=== PATIENT | female | born 1960 | race Caucasian/White ===

== ENCOUNTER → 2020-02-26 14:11 | Outpatient (CLI) | payer OTHER, SELFPAY ==
--- NOTE | ~2020-02-26 | XR_ITS ---
XR chest 2V DATE: 02/26/2020 14:25 INDICATION: Right chest pain for one month. Smoker. TECHNIQUE: PA and lateral views COMPARISON: None FINDINGS: Normal heart size. No hilar or mediastinal enlargement. No pulmonary infiltrate or consolid ation, pleural effusion or pulmonary vascular congestion or pneumothorax. Surgical clips, right upper quadrant, consistent with cholecystectomy. IMPRESSION: No active cardiopulmonary disease Reviewed, dictated and finalized at location A.
== END ==
PROVIDERS: PCP Emergency Medicine; Visit Provider Emergency Medicine
DX: J44.9 Chronic obstructive pulmonary disease, unspecified (principal)
CPT/HCPCS: 71046

== ENCOUNTER → 2020-04-30 10:35 | Outpatient (CLI) | payer OTHER, SELFPAY ==
--- NOTE | ~2020-04-30 | XR_ITS ---
XR lumbar spine 2-3V DATE: 04/30/2020 10:52 INDICATION: Left lower back pain, radiating to left lower extremity TECHNIQUE: AP, lateral, coned lateral lumbosacral views COMPARISON: None FINDINGS: There is mild levoscoliosis of the thoracolumbar spine. No fracture or bone destruction or spondylolisthesis. The included lower thoracic and lumbar pedicles are intact. There is mild degenerative spurring primarily at L3-4. The lumbar and lumbosacral inters paces are relatively preserved. The sacroiliac joints are intact. Surgical clips, right upper quadrant, consistent with cholecystectomy. There is an approximately 5 x 12 mm calcification overlying the right renal pelvis. IMPRESSION: Mild levoscoliosis Mild degenerative disc disease at L3-4 Reviewed, dictated and finalized at location A.
== END ==
PROVIDERS: PCP Emergency Medicine; Visit Provider Emergency Medicine
DX: M54.5 Low back pain (principal); M41.86 Other forms of scoliosis, lumbar region; M51.36 Other intervertebral disc degeneration, lumbar region
CPT/HCPCS: 72100

== ENCOUNTER 2020-05-13 01:49 | Outpatient (CLI) | payer OTHER, SELFPAY ==
[2020-05-13 19:16] LABS: SARS-CoV-2 RNA PCR Negative
== END 2020-05-13 01:50 | disposition home or self-care (01) ==
LOC: ANHCOVIDDT 01:50
PROVIDERS: PCP Emergency Medicine; Visit Provider Specialist
DX: Z01.812 Encounter for preprocedural laboratory examination (principal); Z11.59 Encounter for screening for other viral diseases
CPT/HCPCS: 87635; C9803; U0003

== ENCOUNTER 2020-05-15 10:37 | Outpatient (CLI) | payer OTHER, SELFPAY ==
[2020-05-15] VITALS (20 sets, daily range): BP systolic 90–137; BP diastolic 62–97; PULSE 4–78; RESP 14–20; TEMP 36.2–36.8; O2SAT 96–99; BMI 44.9
[2020-05-15 11:54] LABS: Basophils Absolute Auto 0.1 K/mm3 (0.0-0.1); Basophils Percent Auto 0.7 % (0.2-1.2); Eosinophils Absolute Auto 0.4 K/mm3 (0-0.3); Eosinophils Percent Auto 4.5 % (0-4.4); Hematocrit 44.1 % (37.0-47.0); Hemoglobin 14.6 g/dL (12.0-15.0); Immature Granulocyte Absolute 0.03 K/mm3 (0.00-0.031); Immature Granulocyte Percent A 0.3 % (0-0.5); Lymphocytes Absolute Auto 2.24 K/mm3 (0.9-3.2); Lymphocytes Percent Auto 25.9 % (18.3-44.2); Mean Corpuscular HGB Conc 33.1 g/dl (32-36); Mean Corpuscular Hemoglobin 30.1 pg (26-34); Mean Corpuscular Volume 90.9 fl (80-100); Mean Platelet Volume 10.1 fl (7.4-10.4); Monocytes Absolute Auto 0.7 K/mm3 (0.1-0.6); Neutrophils Absolute Auto 5.2 K/mm3 (1.3-6.7); Neutrophils Percent Auto 60.6 % (45.5-73.1); Platelet Count Result 256 k/mm3 (150-375); Red Blood Count 4.85 M/mm3 (4.2-5.4); Red Cell Distribution Width 12.7 % (11.5-14.5); White Blood Count 8.6 K/mm3 (4.5-10.0)
[2020-05-15 12:06] LABS: Blood Urea Nitrogen 11 mg/dL (7-17); Calcium 8.4 mg/dL (8.4-10.2); Carbon Dioxide 26 mmol/L (22-30); Chloride 108 mmol/L (98-107); Estimated CRCL calculation 80 ml/min; Estimated Glomerular Filt Rate > 60; Glucose 107 mg/dL (65-105); INR 1.1; Potassium 3.9 mmol/L (3.4-5.0); Prothrombin Time 13.6 Seconds (11.1-14.7); Sodium 140 mmol/L (137-145)
--- NOTE | 2020-05-15 13:56 | PM.IMHP ---
H&P: HPI History of Present Illness Chief complaint: Chest Pain Narrative: Skip Mari is a 60 year old female Chief complaint is chest pain 60-year-old lady with history of dyslipidemia, history of hypertension, was seen because of chest pain underwent stress test which was abnormal she will be admitted to the hospital for elective cardiac catheterization for definitive diagnosis of coronary disease Meds Home Medications and Allergies Home Medications Medication Instructions Recorded Confirmed Type albuterol sulfate 2 puff INHALATION QID 05/15/20 05/15/20 History albuterol sulfate 2.5 mg INHALATION Q4H 05/15/20 05/15/20 History budesonide-formoterol [Symbicort] 2 puff INHALATION Q12H 05/15/20 05/15/20 History fluticasone propionate 1 spray INTRANASAL BID 05/15/20 05/15/20 History furosemide [Lasix] 20 mg PO DAILY 05/15/20 05/15/20 History losartan 50 mg PO DAILY 05/15/20 05/15/20 History potassium chloride 10 meq PO DAILY 05/15/20 05/15/20 History simvastatin 40 mg PO DAILY 05/15/20 05/15/20 History Allergies Allergy/AdvReac Type Severity Reaction Status Date / Time No Known Allergies Allergy Unverified 01/21/17 15:23 Vital Signs Vital Signs - 24 hr 05/15/20 11:15 Temperature 36.3 C L Pulse Rate 72 Respiratory Rate 18 Blood Pressure 90/67 L Pulse Oximetry 98 Exam Narrative: Exam Narrative: Awake alert oriented x3 not in acute distress Neck is supple no obvious JVD, no carotid bruit Chest: Good air entry bilaterally, lungs are clear to auscultation and percussion bilaterally Cardiovascular: Regular rate and rhythm, 2/6 systolic murmur noted left sternal border Abdomen: Soft nontender bowel sounds positive Extremities: No edema has good pulses distally bilaterally H&P: Results Labs Labs: Short CBC 05/15/20 Range/Units 11:41 WBC 8.6 (4.5-10.0) K/mm3 Hgb 14.6 (12.0-15.0) g/dL Hct 44.1 (37.0-47.0) % Plt Count 256 (150-375) k/mm3 BMP 05/15/20 11:41 Sodium 140 Potassium 3.9 Chloride 108 H Carbon Dioxide 26 BUN 11 Creatinine 0.70 Glucose 107 H Calcium 8.4 Assessment and Plan Assessment and plan (1) Abnormal stress electrocardiogram test: Code(s): R94.39 - Abnormal result of other cardiovascular function study Status: Acute (2) Atypical chest pain: Code(s): R07.89 - Other chest pain Status: Acute Assessment and Plan: will plan cardiac catheterization. The procedure was discussed with the patient, risks, benefits, and alternative diagnostic measure was explained, patient agreed to the procedure
--- NOTE | 2020-05-15 13:57 | WPDMODSED ---
Moderate Sedation Note-Pt Data Patient Data Allergies Allergy/AdvReac Type Severity Reaction Status Date / Time No Known Allergies Allergy Unverified 01/21/17 15:23 Home Medications Medication Instructions Recorded Confirmed Type albuterol sulfate 2 puff INHALATION QID 05/15/20 05/15/20 History albuterol sulfate 2.5 mg INHALATION Q4H 05/15/20 05/15/20 History budesonide-formoterol [Symbicort] 2 puff INHALATION Q12H 05/15/20 05/15/20 History fluticasone propionate 1 spray INTRANASAL BID 05/15/20 05/15/20 History furosemide [Lasix] 20 mg PO DAILY 05/15/20 05/15/20 History losartan 50 mg PO DAILY 05/15/20 05/15/20 History potassium chloride 10 meq PO DAILY 05/15/20 05/15/20 History simvastatin 40 mg PO DAILY 05/15/20 05/15/20 History Current Medications: Active Medications Sodium Chloride (Normal Saline Iv) 500 mls @ 100 mls/hr IV CONT .Q5H [facility] Sedation/Anesthesia: No previous sedation/anesthesia problems (including family history). Mod Sed Physical Exam Physical Exam Pre Procedural Exam: Normal: Appearance, Eyes, Ears, Nose, Neck, Throat, Airway, Lungs, Heart Size, Heart Rate, Heart Rhythm, Neuro Exam, Abdomen, Liver, Kidneys, Spleen, Breasts, Genitalia, Extremities and Skin Hours since solid foods: 8 Hours since liquid intake: 8 Internal Medicine - PN: Obj Da Vital Signs Vital Signs: Vital Signs - 24 hr 05/15/20 11:15 Temperature 36.3 C L Pulse Rate 72 Respiratory Rate 18 Blood Pressure 90/67 L Pulse Oximetry 98 Meds/Results Medications: Active Medications Generic Name Dose Route Start Last Admin Trade Name Freq PRN Reason Stop Dose Admin Sodium Chloride 500 mls @ 100 mls/hr 05/15/20 06:10 Normal Saline Iv IV CONT .Q5H [facility] Labs CBC & Chem 7: 05/15/20 11:41 05/15/20 11:41 Labs: Laboratory Results - last 24 hr 05/15/20 05/15/20 05/15/20 11:41 11:41 11:41 WBC 8.6 RBC 4.85 Hgb 14.6 Hct 44.1 MCV 90.9 MCH 30.1 MCHC 33.1 RDW 12.7 Plt Count 256 MPV 10.1 Immature Gran % (Auto) 0.3 Neut % (Auto) 60.6 Lymph % (Auto) 25.9 [place] % (Auto) 8.0 Eos % (Auto) 4.5 H Baso % (Auto) 0.7 Lymph # (Auto) 2.24 [place] # (Auto) 0.7 H Eos # (Auto) 0.4 H Baso # (Auto) 0.1 Abs Immat Gran (auto) 0.03 Absolute Neuts (auto) 5.2 Absolute Nucleated RBC 0.0 Nucleated RBC % 0.0 PT 13.6 INR 1.1 Sodium 140 Potassium 3.9 Chloride 108 H Carbon Dioxide 26 BUN 11 Creatinine 0.70 Estim Creat Clear Calc 80 Estimated GFR > 60 Glucose 107 H Calcium 8.4 ASA Classification/Sedation ASA Classification/Sedation ASA Class: II Risks: Risks, benefits and alternatives explained and patient/family accepted plan for sedation. Patient re-evaluated immediately prior to sedation.
--- NOTE | 2020-05-15 16:09 | P.PCNCC_ITS ---
Cardiac Cath Procedure Note Date of procedure:: 05/15/20 Performing physician:: Killian Gonzalez MD Procedure: 1. Left heart catheterization, selective coronary angiogram. 2. Left ventricular angiogram. 3. Conscious sedation. 4. Attempted FFR to the LAD Sas Administrator: Dr. Killian Gonzalez Complications: None. Sedation: Conscious sedation, local anesthesia, using 1 mg of Versed said, 25 mcg of fentanyl, and using 1% lidocaine for local anesthesia. Technique: After informed consent was obtained from patient, was brought to the car barn laborer, put in the car barn laborer table, prepped and draped in usual sterile fashion. Five Zimbabwean sheath was inserted into the right common femoral artery, through the sheath 5 Zimbabwean JL4 catheter inserted, advanced to the left coronary artery, left coronary artery angiogram was obtained. The catheter was exchanged over guidewire into a 5 Zimbabwean JR4 catheter, advanced to the right coronary artery, right coronary artery angiogram was obtained. The catheter then was exchanged over guidewire into this 5 Zimbabwean pigtail catheter, advanced to left ventricle, left ventricular angiogram was obtained. The sheath was exchanged over guidewire to 6 Zimbabwean sheath, and initially JCL 3.5 guide was inserted advanced to the left system, could not have good coaxial support with that ending guide was changed to FR 3.5 guide but was very selective to the circumflex and we could not pass the wire to the LAD. Repeat angiogram to the left system was obtained, visualizing the lesion. It was decided to abort the procedure Hemodynamics: aortic pressure 124/60 . LV pressure 124/04 with LVEDP of 16 mmHg Angiographic findings: Left main: Medium size artery no significant disease or stenosis. Lad medium size artery showed proximal tubular lesion of narrowing about 60%, then there is significant size diagonal branch that has ostial 90% disease and there is a small 2nd diagonal branch that has 90% disease but smaller vessel Left circumflex artery, medium size artery, no significant disease or stenosis. RCA: Dominant vessel, showed no significant disease or stenosis LV: Normal size left ventricle with normal left ventricular systolic function. Summary: Single-vessel coronary disease significant disease of the proximal LAD, likely is moderate, but with diagonal branch disease. Recommendation: Maximum medical treatment. Risk factor modification. Consider evaluation possibly with FFR when supportive guide is available, or if she has any recurrence of symptoms. With her lesion about 60%, best is to have medical treatment and risk factors modification
--- NOTE | 2020-05-15 17:45 | SUR.PHASEII ---
1715-6F sheath pulled by Connie Gatica RN. Firm pressure applied. No distress noted. AOx4. Groin soft and non-tender, no evidence of bleeding or hematoma noted. Strong right pedal pulse noted. Off pressure at 1745. Will continue to monitor.
--- NOTE | 2020-05-15 18:51 | SUR.PHASEII ---
1830-pt taken to IMU to complete bedrest. Groin inspected by LA Herrera. Soft and non-tender, no evidence of bleeding or hematoma noted. Strong right pedal pulse noted. No distress when care given to IMU.
--- NOTE | 2020-05-16 00:21 | PC.NURSE ---
At 2345 helped patient to chair as per doctors orders. Rt. groin site remains dry and intact. pt. denies any pain or discomfort at this time. At 0000 pt walked to bathroom with standby assist. no issues noted.
== END 2020-05-16 00:50 | disposition home or self-care (01) ==
LOC: ANHCATHLAB 10:39 → ANHIMU 18:26
PROVIDERS: PCP Emergency Medicine; Visit Provider Specialist
PROC: 4A023N7 Measurement of Cardiac Sampling and Pressure, Left Heart, Percutaneous Approach (ICD-10-PCS; CPT 93452; principal; 2020-05-15 13:00)
PROC: 4A033BC Measurement of Arterial Pressure, Coronary, Percutaneous Approach (ICD-10-PCS; CPT 93571; 2020-05-15 13:00)
DX: R07.9 Chest pain, unspecified (principal); R94.39 Abnormal result of other cardiovascular function study
CPT/HCPCS: 36415; 80048; 85025; 85610; 93458; 93571; A9270; C1769; C1887; C1894; J0461; J0583; J1644; J2250; J3010; J7040

== ENCOUNTER 2021-01-27 07:32 | Outpatient (CLI) | payer OTHER, SELFPAY ==
--- NOTE | ~2021-01-27 | MM_ITS ---
EXAMINATION: MM screening robe BI w pavithra HISTORY: Screening mammogram TECHNIQUE: Craniocaudal and mediolateral oblique 3-D tomosynthesis images were obtained and synthetic 2-D images were generated. CAD analysis was submitted and interpreted. COMPARISON: 04/20/2017 BREAST PARENCHYMAL COMPOSITION: The breasts are almost entirely fatty. FINDINGS: There is no evidence of suspicious mass, calcification, or architectural distortion to sugg est malignancy in either breast. There has been no suspicious interval change. IMPRESSION: 1. No mammographic evidence of malignancy. 2. Recommend routine screening mammography in one year. BI-RADS Category 1: Negative Reviewed, dictated and finalized at location A.
== END 2021-01-27 07:33 | disposition home or self-care (01) ==
LOC: ANHIMG 07:37
PROVIDERS: PCP Emergency Medicine; Visit Provider Emergency Medicine
DX: Z12.31 Encounter for screening mammogram for malignant neoplasm of breast (principal)
CPT/HCPCS: 77063; 77067

== ENCOUNTER → 2021-09-12 00:22 | Outpatient (CLI) | payer OTHER, SELFPAY ==
[2021-09-12 17:39] LABS: SARS-CoV-2 RNA PCR Negative
== END ==
PROVIDERS: PCP Emergency Medicine; Visit Provider Obstetrics & Gynecology
DX: Z01.812 Encounter for preprocedural laboratory examination (principal); Z20.822 Contact with and (suspected) exposure to COVID-19
CPT/HCPCS: C9803; U0003; U0005

== ENCOUNTER 2021-09-15 02:07 | Day surgery (SDC) | payer OTHER, SELFPAY ==
[2021-08-10 13:23] VITALS: BMI 44.1
--- NOTE | 2021-09-09 12:17 | PC.NURSE ---
Pt states no changes in medications or health history since initial interview. New instructions reviewed with pt. Pt denies questions at this time. Pt encouraged to call Dr. Bliss's office for instructions regarding stopping aspirin and Plavix. Pt verbalizes understanding to call.
--- NOTE | 2021-09-09 12:19 | PC.NURSE ---
Report to the Outpatient Waiting Room, entrance under the green pavilion located off [address], at 12:00 on date 09/15/21. OR Time: 2:00. - You and your visitor will be asked a series of questions to screen for COVID 19 for your protection. - A mask is required within the hospital. - Only one visitor is allowed at this time. Patient visitors will be guided where to wait when not with patient. Preoperative COVID Testing Requirements: No COVID Test needed if: (proof is required; if not received patient will have Rapid Test prior to entry) - Patient has received COVID Vaccine at least 14 days prior to procedure date or - Patient has positive COVID test result within last 90 days of surgery date. COVID Test needed if above criteria is not met If not COVID vaccinated a COVID test must be conducted within 72 hours of surgery and patient is asked to isolate self from time of testing until procedure. You will go to the [facility] for your COVID testing. The [facility] is located at the corner [address] [facility]. COVID TEST 09/12 AT 9:15 You will only be called if COVID results are positive and your surgeon may reschedule your elective surgery date. Patients may have clear liquids (water, carbonated beverages, clear teas, apple juice) until 3 hours prior to surgery with a maximum of 20 ounces. - No food from midnight until time of surgery - Infants may have breast milk until 4 hours before surgery, formula 6 hours prior to surgery. - Children will be allowed to drink immediately following surgery. If applicable, please bring a bottle or sippy cup to assist with drinking. Juice, water, soda, and popsicles are readily available. For infants on formula, please bring formula the day of surgery. Pacifiers are allowed. Take the following medications with a SIP of water the morning of surgery: INHALERS (BRING ALBUTEROL), CARVEDILOL Medications to discontinue per physician: VITAMINS AND SUPPLEMENTS STOP 3 DAYS PRE-OP. ASPIRIN AND PLAVIX STOP PER DR. PLATT Please no make-up, nail yoruba, hairspray, perfume, deodorant, or body powder the day of surgery. No jewelry (including any body piercings) or valuables the day of surgery, leave them at home. Please take a shower or bath the night before, or the morning of, surgery with an antibacterial soap. Wear comfortable, loose fitting clothing. Children are encouraged to wear pajamas. - Jewelry must be removed prior to entering the operating room. Rings and piercings that are not removed may be cut off. - The hospital will not accept responsibility for valuables. - Please leave all valuables, including medications, at home the day of surgery. If you are going home after surgery, a licensed team cdl driver must drive you home. - NO public transportation without another adult. - We recommend that an adult stay with you for 24 hours following discharge. - We also recommend that you do not drive, make important decision, drink alcoholic beverages, or take any drugs that were not prescribed by your health care provider for at least 24 hours after your discharge time. For Pediatric surgeries, we recommend two adults accompany the child home (only one inside the building at this time). Follow any additional instructions given to you from your surgeon. Telephone instructions given to NURIA BONILLA and asked if any additional questions and then verbalized understanding. Patient advised to call surgeon office or pre surgery nurse liaison [phone] if any additional questions.
--- NOTE | 2021-09-14 13:58 | WPDANESEPPF ---
Anes - Initial Pre Proc Eval Procedure: Operation Date: 09/15/21 14:00 Proposed Procedures p Hysteroscopy, Dilation and Curettage - Jenn Bliss MD Date/Time: 09/14/21 13:58 Surgeon: Jenn Bliss MD Pre Op Diagnosis: mass of uterus Patient Data Age: 61 Gender: F Height: 1.52 m Weight: 102.5 kg Allergies Allergy/AdvReac Type Severity Reaction Status Date / Time No Known Allergies Allergy Unverified 09/09/21 12:09 Home Medications Medication Instructions Recorded Confirmed Type albuterol sulfate 2 puff INHALATION QID 05/15/20 09/15/21 History albuterol sulfate 2.5 mg INHALATION Q4H 05/15/20 09/15/21 History budesonide-formoterol [Symbicort] 2 puff INHALATION Q12H 05/15/20 09/15/21 History fluticasone propionate 1 spray INTRANASAL BID 05/15/20 09/15/21 History furosemide [Lasix] 20 mg PO DAILY 05/15/20 09/15/21 History losartan 50 mg PO DAILY 05/15/20 09/15/21 History potassium chloride 10 meq PO DAILY 05/15/20 09/15/21 History simvastatin 40 mg PO DAILY 05/15/20 09/15/21 History aspirin 81 mg PO DAILY 08/10/21 09/15/21 History carvedilol 3.125 mg PO BID 08/10/21 09/15/21 History clopidogrel [Plavix] 75 mg PO DAILY 08/10/21 09/15/21 History Patient hx anesthesia problems: none Family hx anesthesia problems: none Results Review: All pre-operative results and documents have been reviewed as part of the pre-operative evaluation. [facility] Past Medical History Medical History Arthritis Atypical chest pain CAD (coronary artery disease) 1 stent COPD (chronic obstructive pulmonary disease) emphysema HTN (hypertension) Hyperlipidemia Morbid obesity with BMI of 40.0-44.9, adult Smoker Social History Social History Smoking packs per day: 0.5 Smoking cigarettes per day: 10.0 Years smoked: 40 Smoking pack-years: 20.00 Smoking status: Current every day smoker Tobacco type: cigarettes Alcohol intake: never Substance use: never Substance use type: does not use Living arrangements: with family Spiritual care concerns: No Anes - Eval Final PreProcedure Day of Procedure 09/14/21 13:58 Patient weight: morbidly obese Heart: regular rate and rhythm Lungs: clear to auscultation and normal air movement Airway: Mallampati scale class II Neurological: alert and oriented Last oral intake: >/= 8 hours ASA classification: III Emergent: no Anesthetic plan: proceed Anesthesia type and monitoring: general LMA Results Review: All pre-operative results and documents have been reviewed as part of the pre-operative evaluation. Informed Consent: The patient's anesthetic plan and its attendant risks and benefits were discussed with the patient/family/POA. Questions were solicited and answers provided to the satisfaction of the patient/family/POA.
[2021-09-15] MEDS: ACETAMINOPHEN 500 MG TABLET 1000 MG PO (12:36)
[2021-09-15] MEDS: LACTATED RINGERS 1,000 ML 30 ML IV CONT (12:36)
[2021-09-15 12:45] VITALS: BP 109/43; PULSE 62; RESP 18; TEMP 36.3; O2SAT 98
[2021-09-15 12:52] LABS: Anion Gap 5 mmol/L (8-16); Blood Urea Nitrogen 8 mg/dL (7-17); Calcium 8.9 mg/dL (8.4-10.2); Carbon Dioxide 29 mmol/L (22-30); Chloride 106 mmol/L (98-107); Estimated CRCL calculation 90 ml/min; Estimated Glomerular Filt Rate > 60; Glucose 115 mg/dL (65-110); Potassium 3.9 mmol/L (3.4-5.0); Sodium 140 mmol/L (137-145)
--- NOTE | 2021-09-15 13:53 | PM.IMHP ---
H&P: HPI History of Present Illness Date/Time: 09/15/21 13:53 Chief Complaint: uterine mass Narrative: has uterine mass seen on CT scan in spring. Seen by me in April, unable to get endometrial cells on EMB. US showed 2cm focus in uterus with cystic area. Since then her sister and she had two attempts at cardiac stents. Now cleared for surgery and plan is D and C with hysteroscopy. Review of Systems Review of Systems: All systems reviewed & are unremarkable except as noted in HPI and below PMFSH Past Medical History Medical History Arthritis Atypical chest pain CAD (coronary artery disease) 1 stent COPD (chronic obstructive pulmonary disease) emphysema HTN (hypertension) Hyperlipidemia Morbid obesity with BMI of 40.0-44.9, adult Smoker Social History Social History Smoking packs per day: 0.5 Smoking cigarettes per day: 10.0 Years smoked: 40 Smoking pack-years: 20.00 Smoking status: Current every day smoker Tobacco type: cigarettes Alcohol intake: never Substance use: never Substance use type: does not use Living arrangements: with family Spiritual care concerns: No Meds Home Medications and Allergies Home Medications Medication Instructions Recorded Confirmed Type albuterol sulfate 2 puff INHALATION QID 05/15/20 09/15/21 History albuterol sulfate 2.5 mg INHALATION Q4H 05/15/20 09/15/21 History budesonide-formoterol [Symbicort] 2 puff INHALATION Q12H 05/15/20 09/15/21 History fluticasone propionate 1 spray INTRANASAL BID 05/15/20 09/15/21 History furosemide [Lasix] 20 mg PO DAILY 05/15/20 09/15/21 History losartan 50 mg PO DAILY 05/15/20 09/15/21 History potassium chloride 10 meq PO DAILY 05/15/20 09/15/21 History simvastatin 40 mg PO DAILY 05/15/20 09/15/21 History aspirin 81 mg PO DAILY 08/10/21 09/15/21 History carvedilol 3.125 mg PO BID 08/10/21 09/15/21 History clopidogrel [Plavix] 75 mg PO DAILY 08/10/21 09/15/21 History Allergies Allergy/AdvReac Type Severity Reaction Status Date / Time No Known Allergies Allergy Unverified 09/09/21 12:09 Vital Signs Vital Signs - 24 hr 09/15/21 12:45 Temperature 97.4 F L Pulse Rate 62 Respiratory Rate 18 Blood Pressure 109/43 L Pulse Oximetry 98 Exam Const: General: no acute distress Resp: Effort & Inspection: normal respiratory effort Auscultation: clear to auscultation bilaterally Cardio: Rate: regular rate Rhythm: regular rhythm GI: GI Palp: Yes Soft to palpation Extrem: General: normal to inspection H&P: Results Labs Labs: [facility] 09/15/21 12:31 Sodium 140 Potassium 3.9 Chloride 106 Carbon Dioxide 29 BUN 8 Creatinine 0.60 L Glucose 115 H Calcium 8.9 Assessment and Plan Assessment and plan (1) Uterine mass: Code(s): N85.8 - Other specified noninflammatory disorders of uterus Status: Acute Additional Plan Plan HSC and D and C for endometrial sampling as EMB was insufficient. Discussed RBA and pt consented. will proceed.
--- NOTE | 2021-09-15 13:56 | WPDHPUPDATE1 ---
History and Physical Update Update Date/Time: 09/15/21 13:56 History and Physical has been reviewed, including an updated exam of the patient. There are NO changes in the patient's condition. Risks, benefits, and alternatives have been discussed and questions answered. Patient agrees to proceed with procedure.
[2021-09-15] MEDS: BUPIVACAINE HCL 0.25% PF 30 ML VIAL 10 ML INFILTRATE (14:09)
--- NOTE | 2021-09-15 14:34 | P.OP_ITS ---
Procedure Note - Detailed Date of Procedure 09/15/21 Pre-op Diagnosis uterine mass Post-op Diagnosis same Procedure Performed Hysteroscopy and D and C with Myosure Surgeon Jenn Bliss MD Laundry Or Dry Cleaners Counter Clerk none Anesthesia MAC Findings An unusual looking mass with small yellow deposits and blood vessels on its surface in the right/fundal area. Description of Procedure The patient was taken to the OR and placed in dorthal lithotomy in [facility]. She received MAC anesthesia. A speculum was placed and the cervix grasped with a single tooth tenaculum. 10cc of 0.25% marcaine with epinephrine was instilled in a paracervical block. The cervix was sequentially dilated to accomodate the Myosure hysteroscope. The hysteroscope was inserted and the uterine cavity was visualized with the findings noted above. Thy Myosure device was used to obtain endometrial sampling as well as to remove a mass in the right fundal uterus that, upon resection, appears to be a fibroid. The hysteroscope was removed. The tenaculum was removed and the cervix was made hemostatic with Monsel's solution and pressure. The speculum was removed. The patient tolerated the procedure well. Estimated Blood Loss 5 Drains No Packing No Pathology yes Complications No immediate complications Condition stable Disposition same day
[2021-09-15 14:37] VITALS: BP 119/75; PULSE 78; RESP 20; O2SAT 98
--- NOTE | 2021-09-15 14:38 | SUR.OPER ---
2200 ml of NS hysteroscopy irrigation in 2000 ml of NS out
[2021-09-15 15:00] VITALS: BP 124/60; PULSE 61; RESP 20
[2021-09-15] MEDS: oxyCODONE HCL (*CRX) 5 MG TAB IR PO (15:05)
[2021-09-15 15:30] VITALS: BP 127/65; PULSE 52; RESP 20
== END 2021-09-15 15:40 | disposition home or self-care (01) ==
PROVIDERS: Anesthesiology; PCP Emergency Medicine; Visit Provider Obstetrics & Gynecology
PROC: 0U5B8ZZ Destruction of Endometrium, Via Natural or Artificial Opening Endoscopic (ICD-10-PCS; CPT 58563; principal; 2021-09-15 14:00)
DX: N84.0 Polyp of corpus uteri (principal); I25.10 Atherosclerotic heart disease of native coronary artery without angina pectoris; I10 Essential (primary) hypertension; E78.5 Hyperlipidemia, unspecified; Z95.5 Presence of coronary angioplasty implant and graft; E66.01 Morbid (severe) obesity due to excess calories; Z68.41 Body mass index [BMI] 40.0-44.9, adult; Z79.51 Long term (current) use of inhaled steroids; Z79.02 Long term (current) use of antithrombotics/antiplatelets; Z79.82 Long term (current) use of aspirin; F17.210 Nicotine dependence, cigarettes, uncomplicated
CPT/HCPCS: 58558; 36415; 80048; 88305; A9270; J2704; J7030; J7120

== ENCOUNTER 2022-06-28 12:44 | Outpatient (CLI) | payer OTHER, SELFPAY ==
--- NOTE | ~2022-06-28 | CT_ITS ---
EXAMINATION: CT diagnostic chest wo con DATE: 06/28/2022 13:00 INDICATION: Lung nodule, cough TECHNIQUE: Computed tomography (CT) of the chest was performed without intravenous contrast. The dose -length product (DLP) was 312.84 mGy-cm. Automated exposure control and iterative reconstruction tech nique were employed. COMPARISON: 03/11/2018 FINDINGS: There are multiple stable nodules of the lungs, the largest of which measures 5 mm in the r ight lower lobe. A 3 mm nodule in the left upper lobe on image 35 is not definitely identified on the prior examination. The lungs are free of acute opacities. No pleural effusion or pneumothorax. Calci fied pulmonary nodules and calcified mediastinal lymph nodes are consistent with old granulomatous di sease. Calcified coronary artery atherosclerosis is noted. There is nodularity of the liver surface. Mild periportal lymphadenopathy is likely reactive. There is mild thoracic spondylosis. IMPRESSION: 1. 3 mm nodule of the left upper lobe not definitely identified on the prior examination. Follow-up C T in six months is recommended. Otherwise, stable bilateral pulmonary nodules, likely old granulomato us disease. 2. Cirrhosis. Reviewed, dictated and finalized at location B. IMPRESSION: 1. 3 mm nodule of the left upper lobe not definitely identified on the prior ex amination. Follow-up CT in six months is recommended. Otherwise, stable bilater al pulmonary nodules, likely old granulomatous disease. 2. Cirrhosis.
== END 2022-06-28 12:45 | disposition home or self-care (01) ==
PROVIDERS: PCP Emergency Medicine; Visit Provider Emergency Medicine
DX: R91.8 Other nonspecific abnormal finding of lung field (principal); K76.0 Fatty (change of) liver, not elsewhere classified
CPT/HCPCS: 71250

== ENCOUNTER 2023-02-11 15:11 | Outpatient (CLI) | payer OTHER, SELFPAY ==
--- NOTE | ~2023-02-11 | CT_ITS ---
Clinical Indication: Lung nodules CT Scan of the Chest with Contrast: Technique: Contiguous sections were acquired throughout the chest after intravenous administration of 75 cc of Omnipaque 350. Dose reduction technique was used on this scan by utilizing automated exposu re control and iterative reconstruction technique. The dose-length product (DLP) was 540.47 mGy-cm. COMPARISON: 06/28/2022 and 03/21/2018 Findings: There is no evidence of any significant mediastinal, hilar or axillary lymphadenopathy. No large cent ral pulmonary embolus. There is no evidence of aortic dissection or aneurysm. There is no evidence of pleural or pericardial effusion. Several scattered subcentimeter pulmonary nodules are stable since 03/21/2018. No suspicious pulmonary abnormality seen. Images through the upper abdomen reveal suggestion of nodular contour of the liver. Possible subtle 7 mm enhancing lesion in the right hepatic lobe. Impression: Subcentimeter pulmonary nodules are stable since 03/21/2018. Stability over this time interval is cons istent with benignity. Probable cirrhotic liver with questionable 7 mm enhancing lesion in the right hepatic lobe, which is indeterminate. Reviewed, dictated and finalized at location . Impression: Subcentimeter pulmonary nodules are stable since 03/21/2018. Stability over this time interval is consistent with benignity. Probable cirrhotic liver with questionable 7 mm enhancing lesion in the right h epatic lobe, which is indeterminate.
[2023-02-11 15:50] LABS: Estimated Glomerular Filt Rate > 60
== END 2023-02-11 15:12 | disposition home or self-care (01) ==
PROVIDERS: PCP Emergency Medicine; Visit Provider Internal Medicine Hematology & Oncology
DX: R91.8 Other nonspecific abnormal finding of lung field (principal)
CPT/HCPCS: 71260; Q9967

== ENCOUNTER 2024-02-28 15:49 | Outpatient (CLI) | payer OTHER, SELFPAY ==
--- NOTE | ~2024-02-28 | CT_ITS ---
Clinical Indication: Lung nodules CT Scan of the Chest with Contrast: Technique: Contiguous sections were acquired throughout the chest after intravenous administration of 75 cc of Omnipaque 350. Dose reduction technique was used on this scan by utilizing automated exposu re control and iterative reconstruction technique. The dose-length product (DLP) was 496.87 mGy-cm. COMPARISON: 02/11/2023 Findings: There is no evidence of any significant mediastinal, hilar or axillary lymphadenopathy. There is no l arge central pulmonary embolus. There is no evidence of aortic dissection or aneurysm. Coronary arter y calcifications are present. There is no evidence of pleural or pericardial effusion. Stable 3 mm upper lobe pulmonary nodule (axial image 35). Right upper lobe cyst unchanged. Stable 4 m m nodule right lung base (axial image 68). Stable 4 mm left lower lobe pulmonary nodule. Images through the upper abdomen reveal nodular contour of the liver and cholecystectomy clips. Impression: Stable subcentimeter pulmonary nodules, as above. Probable cirrhotic change of the liver. Reviewed, dictated and finalized at location . Impression: Stable subcentimeter pulmonary nodules, as above. Probable cirrhotic change of the liver.
== END 2024-02-28 15:50 | disposition home or self-care (01) ==
LOC: ANHIMG 15:50
PROVIDERS: PCP Emergency Medicine; Visit Provider Internal Medicine Hematology & Oncology
DX: R91.8 Other nonspecific abnormal finding of lung field (principal)
CPT/HCPCS: 71260; Q9967

== ENCOUNTER 2025-03-07 08:37 | Outpatient (CLI) | payer MEDICARE, MEDICAID, SELFPAY ==
--- NOTE | ~2025-03-07 | CT_ITS ---
Clinical Indication: Lung nodule CT Scan of the Chest with Contrast: Technique: Contiguous sections were acquired throughout the chest after intravenous administration of 75 cc of Omnipaque 350. Dose reduction technique was used on this scan by utilizing automated exposu re control and iterative reconstruction technique. The dose-length product (DLP) was 502.28 mGy-cm. COMPARISON: 02/28/2024 Findings: There is no evidence of any significant mediastinal, hilar or axillary lymphadenopathy. There is no f illing defect in the pulmonary arterial tree to suggest pulmonary embolus. There is no evidence of ao rtic dissection or aneurysm. There is no evidence of pleural or pericardial effusion. Stable 4 mm right upper lobe nodule (axial image 39). Stable 3 mm right lower lobe nodule (axial imag e 57). Stable additional 5 mm right lower lobe nodule adjacent to the fissure (axial image 69). Stabl e 4 mm left lower lobe nodule (axial image 78). Images through the upper abdomen reveal mildly nodular contour of the liver, suspicious for cirrhotic change. Impression: Stable subcentimeter pulmonary nodules, as detailed above. Cirrhotic morphology of the liver. Reviewed, dictated and finalized at location M. Impression: Stable subcentimeter pulmonary nodules, as detailed above. Cirrhotic morphology of the liver.
--- OUTSIDE RECORDS SUMMARY | 2025-03-07 08:45 | XMS_ITS | Clinical Summary ---
Author Organization [facility] Address [address] [place] [address] Care Team Providers Care Director Embalmer Name Role Phone Anand Rowe MD Primary Care Provider [phone] Allergies Active Allergy Reactions Criticality Noted Date Comments Isosorbide Mononitrate Headache Low 08/27/2022 Medications aspirin 81 mg enteric coated tablet Take 1 tablet (81 mg total) by mouth daily 04/05/20 21 Active cyclobenzaprine (FLEXERIL) 10 mg tablet Take 1 tablet (10 mg total) by mouth 2 (two) times a day as needed for muscle spasms 20 tablet 06/03/20 23 Active gabapentin (NEURONTIN) 100 mg capsule Take 1 capsule (100 mg total) by mouth 3 (three) times a day 90 capsule 06/24/20 23 Active azithromycin (Zithromax Z-Dewey) 250 mg tablet Take 1 tablet (250 mg total) by mouth daily Take first 2 tablets together, then 1 every day until finished. 6 tablet 09/12/20 24 Active albuterol HFA (PROVENTIL HFA,VENTOLIN HFA,PROAIR HFA) 90 mcg/actuation inhaler Inhale 2 puffs every 4 (four) hours as needed for wheezing 1 each 09/12/20 24 025 Active ipratropium-albut Lauren (DUO-NEB) 0.5-2.5 mg/3 mL nebulizer solutionIndicatio ns:Chronic Obstructive Pulmonary Disease with Bronchospasms Take 3 mL by nebulization every 6 (six) hours as needed for wheezing or shortness of breath 90 mL 09/12/20 24 Active carvediloL (COREG) 3.125 mg tablet TAKE 1 TABLET BY MOUTH TWICE DAILY WITH MEALS 180 tablet 3 09/27/20 24 Active atorvastatin (LIPITOR) 40 mg tablet TAKE 1 TABLET BY MOUTH DAILY 90 tablet 1 11/05/20 24 Active losartan (COZAAR) 50 mg tablet TAKE 1 TABLET BY MOUTH DAILY 90 tablet 1 11/05/20 24 Active clopidogreL (PLAVIX) 75 mg tablet TAKE 1 TABLET BY MOUTH ONCE DAILY 90 tablet 2 12/26/19 25 Active amLODIPine (NORVASC) 5 mg tablet Take 1 tablet (5 mg total) by mouth daily 90 tablet 3 02/09/20 25 026 Active nitroglycerin (NITROSTAT) 0.[address] 1 tablet (0.4 mg total) under the tongue every 5 (five) minutes as needed for chest pain 25 tablet 3 02/09/20 25 Active ranolazine ER (RANEXA) 500 mg 12 hr tablet Take 1 tablet (500 mg total) by mouth 2 (two) times a day 180 tablet 3 02/09/20 25 026 Active nitroglycerin (NITROSTAT) 0.4 mg SL tablet DISSOLVE 1 TAB UNDER TONGUE FOR CHEST PAIN MAY REPEAT EVERY 5 MIN UP TO 3 DOSES (DO NOT EXCEED 3 IN 15 MIN). IF PAIN PERSISTS CALL 911 75 tablet 1 03/07/20 24 025 Discontin ued(Reord er) potassium chloride ER 10 mEq CR tablet TAKE 1 TABLET (10 MEQ TOTAL) BY MOUTH DAILY 90 tablet 3 04/30/20 24 025 Discontin ued(Thera py completed ) furosemide (LASIX) 20 mg tablet TAKE 1 TABLET (20 MG TOTAL) BY MOUTH DAILY 90 tablet 3 04/30/20 24 025 Discontin ued(Thera py completed ) ranolazine ER (RANEXA) 500 mg 12 hr tablet TAKE 1 TABLET BY MOUTH TWICE DAILY 60 tablet 11 11/29/19 25 025 Discontin ued(Reord er) Active Problems Problem Noted Date Diagnosed Date Abnormal stress test 01/14/2025 Trigger finger of right thumb 03/26/2024 Abnormal stress echo 08/02/2022 Overview (08/02/2022): Added automatically from request for surgery [id number] Abnormal findings on cardiac catheterization Overview (05/22/2021): Added automatically from request for surgery [id number] Traumatic hematoma of wrist, right, initial enco unter 05/20/2021 Assessment & Plan (05/21/2021 11:32 AM CDT): Noted after taking TR band off with US concerning for active bleeding. Manual pressure held and now without appreciable swelling and no signs of limb ischemia. -Continue neurovascular checks -No heparin products for now -Vascular surgery following, no indication for surgical intervention at this time -Obtain arterial duplex of the right radial artery to rule out pseudoaneurysm Coronary artery disease with angina pectoris 02/2021 Assessment & Plan (05/20/2021 11:15 PM CDT): Continue coreg 3.125 mg BID, losartan 50 mg daily Dyslipidemia 05/10/2021 Assessment & Plan (05/21/2021 11:27 AM CDT): Continue statin HTN (hypertension), benign 05/10/2021 Coronary artery disease of n ative artery of [place] heart with stable angina pectoris 05/03/2021 Overview (05/03/2021): Added automatically from request for surgery [id number] Assessment & Plan (05/21/2021 11:33 AM CDT): Patient with worsening anginal symptoms and found to have pLAD lesion. Will plan for outpatient follow up with Dr. Romero in 2-3 weeks with likely staged fix by Dr. Ambrocio. -Continue ASA -Continue Atorvastatin 40 mg daily -Continue Coreg 3.125 mg BID -PRN Nitroglycerin -Currently denies chest pain Chest pain 05/03/2021 Overview (05/03/2021): Added automatically from request for surgery [id number] Encounters Date Type Department Care Team Description 02/26/2025 Telephone [facility] Cardiology [address] [facility] [address] [place] [address] Alen Romero MD IFR RSC'd 02/19/2025 Telephone [facility] Cardiology [address] [place] [address] Medical Office Building [address] [place] [address] Alen Romero MD 02/19/2025 Telephone [facility] Cardiology [address] [place] [address] [address] [place] [address] Alen Romero MD LHC/IFR insurance auth 02/12/[address] [facility] 8th [place] [address] [place] [address] Alen Romero MD Medication clarification 02/11/[address] 8th [place] [address] [place] [address] Alen Romero MD Med Management 02/08/2025 8:35 AM CDT - 02/08/2025 9:40 AM CDT Surgery [address] [place] [address] Alen Romero MD LEFT HEART CATHETERIZATION WITH CORONARY ANGIOGRAPHY AND WITH OR WITHOUT LEFT VENTRICULOGRAM [id number] 02/08/2025 8:35 AM CDT - 02/08/2025 11:59 PM CDT Hospital [address] [place] [address] Alen Romero MD Coronary artery disease of [place] artery of [place] heart with stable angina pectoris; Chest pain, unspecified type; Abnormal stress test Discharge Disposition: Discharge to home or self care 02/08/[address]th [place] [address] [place] [address] Alen Romero MD 02/08/2025 Telephone [facility] Cardiology [address] [place] [address] [address] [place] [address] Alen Romero MD IFR needed 02/04/[address] 8th [place] [address] [place] [address] Alen Romero MD 01/30/2025 Results Follow-Up [facility] Cardiology [address] [facility] Medical Office Building [address] [place] [address] Minna Anderson, A 01/15/2025 Results Follow-Up [facility] Cardiology [address] [facility] 8th [place] [address] [place] [address] Jane Vallejo RN 01/14/2025 11:30 AM CDT Ancillary Procedure [facility] Cardiology [address] [place] [address] [address] [place] [address] Coronary artery disease of [place] artery of [place] heart with stable angina pectoris; Chest pain, unspecified type 01/14/2025 10:30 AM CDT Ancillary Procedure [facility] Cardiology [address] [place] [address] [address] [place] [address] Coronary artery disease of [place] artery of [place] heart with stable angina pectoris; Chest pain, unspecified type 01/14/2025 10:00 AM CDT Office Visit [facility] Cardiology [address] [place] [address] [address] [place] [address] Alen Romero MD Pre-operative cardiovascular examination (Primary Dx); Coronary artery disease with angina pectoris, unspecified vessel or lesion type, unspecified whether [place] or transplanted heart; Dyslipidemia 01/14/2025 Telephone [facility] Cardiology [address] [place] [address] [address] [place] [address] Alen Romero MD [facility] scheduling 01/14/2025 Telephone [facility] Cardiology [address] [facility] Medical Office Building [address] [place] [address] Alen Romero MD [facility] paperwork 12/24/2024 Telephone [facility] Gastroenterology [address] [place] [address] 12th [place] [address] [place] [address] Radha Breen, LEON 12/13/2024 8:48 AM CARD ROOM MANAGER - 12/13/2024 11:59 PM CARD ROOM MANAGER Hospital Encounter [facility] Radiology at [facility] [address] [place] [address] Other cirrhosis of liver (HCC); Hepatic steatosis Discharge Disposition: Discharge to home or self care from Last 3 Months Surgical History Surgery Date Site/Laterality Comments CARDIAC CATHETERIZATION TUBAL LIGATION APPENDECTOMY CHOLECYSTECTOMY CARDIAC CATHETERIZATION 02/08/2025 N/A Procedure: LEFT HEART CATHETERIZATION WITH CORONARY ANGIOGRAPHY AND WITH OR WITHOUT LEFT VENTRICULOGRAM [id number]; Surgeon: Alen Romero MD; Location: [facility]; Service: Cardiovascular; Laterality: N/A; Dr. Romero requested LHC due to abnormal Stress Test, hx CAD. Previous Cath:08/[address] Romero Allergies/IV Dye Allergy: Denies Diabetic:No Renal Issues/Dialysis:No Anticoagul Medical History Medical History Date Comments Hyperlipidemia Coronary artery disease Hypertension Lumbar facet arthropathy DDD (degenerative disc disease), lumbar Retrolisthesis of lumbar vertebrae Levocurvature of spine, centered at L4 3 Social History Tobacco Use Types Packs/Day Years Used Date Smoking Tobacco: Every Day Cigarettes 0.5 40 Passive Smoke Exposure: Current Smokeless Tobacco: Never Tobacco Cessation:Ready to Q uit: No; Counseling Given: No AUDIT-C Answer Date Recorded Q1: How often do you have a drink containing alc ohol? Never 05/20/2021 Average Number of Drinks Not on file 021 Q3: How often do you have si x or more drinks on one occasion? Never 05/20/2021 Personal Safety Answer Date Recorded Have you ever been in or are you currently in a harmful physical or emotional relationship or is someone making you feel afraid or unsafe? Denies 02/08/2025 Comments No Sex and Gender Information Value Date Recorded Sex Assigned at Not on file Legal Sex Female 5:38 PM CARD ROOM MANAGER Gender Identity Not on file Sexual Orientation Not on file Obstetrics History Last Filed Vital Signs Vital Sign Reading Time Taken Comments Blood Pressure 123/63 02/08/2025 11:15 AM CDT Pulse 66 02/08/2025 11:15 AM CDT Temperature 36.8 C (98.2 F) 02/08/2025 7:26 AM CDT Respiratory Rate 20 02/08/2025 7:26 AM CDT Oxygen Saturation 95% 02/08/2025 11:15 AM CDT Inhaled Oxygen Concentration - - Weight 102.1 kg (225 lb) 02/08/2025 7:26 AM CDT Height 152.4 cm (5') 02/08/2025 7:26 AM CDT Body Mass Index 43.94 02/08/2025 7:26 AM CDT Plan of Treatment Upcoming Encounters Date Type Department Care Team (Latest Contact Info) Description 03/13/2025 8:45 AM CDT Hospital Encounter [facility] [address] [place] [address] Mary Navarro MD [address] [facility] [address] [place] [address] Coronary artery disease of [place] artery of [place] heart with stable angina pectoris; Chest pain, unspecified type; Abnormal findings on cardiac catheterization 03/13/2025 8:45 AM CDT - 03/13/2025 10:50 AM CDT Surgery [facility] [place] [address] [place] [address] Mary Navarro MD [address] [facility] [address] [place] [address] CORONARY FLOW VELOCITY (CFR) / FRACTIONAL FLOW VELOCITY (FFR), 1ST VESSEL (+) [id number] Health Maintenance Due Date Last Done Comments Breast Cancer Screening-Mammogram 1960 Cervical Cancer Screening 1960 Colon Cancer Screening-Colonoscopy 1960 Depression Screening 1960 Osteoporosis Screening-Bone Density Scan 1960 Pneumococcal vaccine 65+ (1 of 2 - PCV) 01/11/1979 Lung Cancer Screening 01/11/2010 Zoster Vaccine (1 of 2) 01/11/2010 Well Visit 65+ 01/11/2025 Influenza Vaccine (Season Ended) 2025 Fall Risk Assessment 02/08/2026 02/08/2025 DTaP/Tdap/Td Vaccine (3 - Td or Tdap) 04/02/2031, 05/22/2019 Hepatitis B Screening Completed 09/02/2022 Hepatitis C Screening Completed 09/02/2022 Medical Devices Implanted Type Area Stock Pitcher Device Identifier Shelf Expiration Date Model / Serial / Lot [employer] [id number] Synergy 3mm 28mm 144cm Radiopaque 1 Access Port Inflation Lumen - [id number] Implanted:Qty: 1 on 05/28/2021 by Charlie Ambrocio MD PhD at [facility] [employer] 01/08/2023 [id number] / / [id number] [employer] [id number] Angio-Seal Evolution 6fr .035in Guidewire Bypass Tube Suture - [id number] Implanted:Qty: 1 on 05/28/2021 by Charlie Ambrocio MD PhD at [facility] [employer] [employer] [place] 01/04/2022 [id number] / / [id number] Procedures Procedure Name Priority Date/Time Associated Diagnosis Comments BASIC METABOLIC PANEL Routine 02/18/2025 12:58 PM CDT Coronary artery disease of [place] artery of [place] heart with stable angina pectoris Chest pain, unspecified type Abnormal stress test HTN (hypertension), benign Pre-procedure lab exam CBC WITH AUTO DIFFERENTIAL Routine 02/18/2025 12:58 PM CDT Coronary artery disease of [place] artery of [place] heart with stable angina pectoris Chest pain, unspecified type Abnormal stress test HTN (hypertension), benign Pre-procedure lab exam LEFT HEART CATHETERIZATION WITH CORONARY ANGIOGRAPHY AND WITH AND WITHOUT LEFT VENTRICULOGRAM Routine 02/08/2025 8:42 AM CDT Coronary artery disease of [place] artery of [place] heart with stable angina pectoris Chest pain, unspecified type Abnormal stress test CBC WITH AUTO DIFFERENTIAL Routine 01/29/2025 12:07 PM CDT Pre-operative cardiovascular examination BASIC METABOLIC PANEL Routine 01/29/2025 12:07 PM CDT Pre-operative cardiovascular examination NM MPI SPECT (REST AND/OR STRESS) MULTIPLE STUDIES Schedule Routine, Read Routine (OP Routine) 01/14/2025 1:11 PM CDT Coronary artery disease of [place] artery of [place] heart with stable angina pectoris Chest pain, unspecified type TRANSTHORACIC ECHO (TTE) COMPLETE W DOPPLER/CF W CONTRAST Routine 01/14/2025 11:18 AM CDT Coronary artery disease of [place] artery of [place] heart with stable angina pectoris Chest pain, unspecified type MRI ABDOMEN LIVER W WO CONTRAST Schedule Routine, Read Routine (OP Routine) 12/13/2024 10:16 AM CARD ROOM MANAGER Other cirrhosis of liver (HCC) Hepatic steatosis HEPATITIS C ANTIBODY Routine 09/02/2022 10:50 AM CDT from Last 3 Months or Most Recently Relevant to Health Maintenance Results * CBC with auto differential (02/18/2025 12:58 PM CDT) WBC 8.2 3.8 - 10.8 Thousand/u L [facility] RBC, POC 4.49 3.80 - 5.10 Million/uL [facility] Hgb 13.7 11.7 - 15.5 g/dL [facility] Hct 41.7 35.0 - 45.0 % [facility] MCV 92.9 80.0 - 100.0 fL [facility] MCH 30.5 27.0 - 33.0 pg [facility] MCHC 32.9 32.0 - 36.0 g/dL [facility] Comment: For adults, a slight decrease in the calculated MCHC value (in the range of 30 to 32 g/dL) is most likely not clinically significant; however, it should be interpreted with caution in correlation with other red cell parameters and the patient's clinical condition. Rdw 12.9 11.0 - 15.0 % [facility] Platelets 265 140 - 400 Thousand/u L [facility] MPV 10.7 7.5 - 12.5 fL [facility] Neutrophils, abs 5,166 1,500 - 7,800 cells/uL [facility] Lymphocytes, abs 1,976 850 - 3,900 cells/uL [facility] Monocyte abs 672 200 - 950 cells/uL [facility] Eosinophils, abs 328 15 - 500 cells/uL [facility] Basophils, abs 57 0 - 200 cells/uL [facility] Neutrophils 63 % [facility] Lymphocyte pct 24.1 % [facility] Monocytes 8.2 % [facility] Eosinophils 4.0 % [facility] Basophils 0.7 % [facility] Blood 02/18/2025 12:5 8 PM CDT 02/18/2025 12:59 PM CDT Narrative [facility] - 02/19/2025 2:02 AM CDT FASTING:NO FASTING: NO Alen Romero MD LAB BLOOD ORDERABLES Final Res ult [facility] [address] [place] [address] * Basic metabolic panel (02/18/2025 12:58 PM CDT) [facility] Glucose 131 65 - 139 mg/dL [facility] Comment: Non-fasting reference interval BUN 13 7 - 25 mg/dL [facility] Creatinine 0.74 0.50 - 1.05 mg/dL [facility] eGFR 90 > OR = 60 mL/min/1.7 3m2 [facility] BUN/creat ratio SEE NOTE: 6 - 22 (calc) [facility] Comment: Not Reported: BUN and Creatinine are within reference range. Sodium 139 135 - 146 mmol/L [facility] Potassium, pl 4.5 3.5 - 5.3 mmol/L [facility] Chloride 103 98 - 110 mmol/L [facility] CO2 32 20 - 32 mmol/L [facility] Calcium 8.6 8.6 - 10.4 mg/dL [facility] Blood 02/18/2025 12:5 8 PM CDT 02/18/2025 12:59 PM CDT Narrative [facility] - 02/19/2025 2:02 AM CDT FASTING:NO FASTING: NO Alen Romero MD LAB BLOOD ORDERABLES Final Res ult [facility] [address] [place] [address] * LEFT HEART CATHETERIZATION WITH CORONARY ANGIOGRAPHY AND WITH AND WITHOUT LEFT VENTRICULOGRAM (02/08/2025 8:42 AM CDT) Anatomical Region Laterality Modality X-Ray Angiograph y Narrative 02/11/2025 8:28 AM CDT Table formatting from the original result was not included. CARDIAC CATHETERIZATION Patient: Skip Bonilla [id number] : 1960 Date of Service: 02/08/2025 FINAL PATIENT CLINICAL PROFILE: Visit Diagnosis: 1. CAD ; single vessel CAD ; Cath May 2020 showed 60% stenosis of proximal LAD and 90% first diagonal vessel. PCI on 05/28/2021 ; 1. Symptomatic patient with IFR positive proximal LAD lesion status post successful PCI with implantation of 3 mm x 28 mm synergy drug-eluting stent. Cath 08/24/2022 ; Patent stent in LAD. 2. Essential HTN 3. Dyslipidemia 4. Current Smoker 1/2 pack a day for 40 yrs, she has started nicotine patch application. History of Present Illness: Skip Bonilla is a pleasant 65 y.o. female who presents for a follow up. She had A stent in LAD. It was patent by cath in Aug 2022.. She had a chest pain requiring 1 sublingual nitroglycerin x2 in last 2 months. She also have shortness of breath. She is still smoing 1/2 pack A day. She has nuclear stress test on 01/14/2025 ,as mentioned below suggestive of ischemia. She is recommended to get a left heart cath. She has started nicotine patch treatment. No diaphoresis, no nausea. No vomiting. No PND no orthopnea. No swelling in the lower extremity. No palpitations skipping of heart beat or syncope. No fever or cough. Her appetite is good. She has a otherwise sedentary lifestyle. No weakness of any part of the body. No bowel or bladder symptoms no bleeding from any part of the body. No history of palpitation. She have low backache due to neuromuscular issues. Past medical history 1. CAD she had a cardiac catheterization done at [facility] on 05/15/2020. Report is as mentioned above no intervention was done. 2. Essential hypertension 3. Dyslipidemia 4. Current smoker. Past surgical history History of tubal ligation. Family history Brother have pacemaker and valve replacement. Personal history she is a current smoker smoke off pack a day for 40 years. No alcohol abuse or drug abuse. REVIEW of SYSTEMS As per HPI. Review of all other systems were done and negative. PHYSICAL EXAMINATION Preprocedure vitals blood pressure 140 1 x 67 mm Hg. Heart rate 68 beats per minute. Respirations 16 per minute saturation 98% room air. Postprocedure vitals blood pressure 1 17 x 58 mm Hg. Heart rate 69 beats per minute respirations 16 per minute saturation 95% room air. GEN: pleasant in NAD; alert, comfortable HENT: NCAT, MMM, anicteric Neck: no trauma, no JVD CVS: RRR, S1S2, no rubs/murmurs/gallops PULM: non-labored, CTAB, good inspiratory effort ABD: soft, not tender to palpation EXT: equal radial pulses, no edema Neuro: motor and sensation grossly intact Skin: warm, dry, no cyanosis I have reviewed the following tests independently and discussed with the patient. Cardiac Cath 08/20/2022 Selective Coronary Arteriography: Left Coronary System: 1. The left main coronary artery is very short and patent. 2. The circumflex coronary artery is non dominant vessel, it does not give any major marginal branches, it trifurcate into posterolateral branches. One of this branch supplying posteriorly small in caliber is 50% stenosed at its origin. 3. The right coronary artery is dominant vessel, small in caliber diffuse luminal irregularities noted in proximal,mid and distal RCA. PDA and PLV branches have diffuse luminal irregularities. 4. Th Left Anterior descending artery ; proximal LAD stent is patent. Mid LAD is 40-50% stenosed. Distal LAD is DIAGNOSTIC IMPRESSIONS: 1. Patent stent in proximal LAD with 50% Mid LAD stenosis 2. No gradient across aortic valve. 3. The left ventricular end-diastolic pressure is 16-21 mmHg. Nuclear stress test 01/14/2025 Pharmaceutical Myocardial perfusion imaging is abnormal. Large nontransmural reversible perfusion defect of mild severity in the anterior, apical, and inferoapical singh. LV wall motion normal. LVEF = 66% No chest pain during stress and no ecg changes. Compared to the previous study from 08/17/2023, the area if ischemia has increased in size. I reviewed the following labs and discussed with the patient. Lab Results Component Value Date GLUCOSE 112 (H) 01/29/2025 CALCIUM 8.5 (L) 01/29/2025 SODIUM 140 01/29/2025 POTASSIUM 4.0 01/29/2025 CO2 31 01/29/2025 CHLORIDE 103 01/29/2025 BUNSER 9 01/29/2025 CREATININE 0.72 01/29/2025 Lab Results Component Value Date WBC 8.6 01/29/2025 HGB 14.5 01/29/2025 HCT 43.8 01/29/2025 MCV 91.4 01/29/2025 LABPLAT 255 01/29/2025 Assessment/Plan: 1. Coronary Artery disease ; s/p Stent in LAD in May 2021. She is on ASA 81 mg A day and plavix 75 mg A day. Continue carvedilol 3.125 mg twice a day. She will continue use nitroglycerin as needed. Her stress test is abonrmal as mentioned above, She is agreeing for a left heart cath. pt understand the risk and benefit of the cardiac cath procedure including risk of complications from sedation ,contrast induced allergic reaction and renal dysfunction, myocardial infarction ,stroke, embolic phenomenon, bleeding , infection ,dissection, perforation or occlusion of vessel, 2. Smoking she need to quit smoking as it puts her at high risk of cardiac event. 3. Hypertension she most likely has essential hypertension. She is on losartan and carvedilol . She is using low-salt diet goal is to keep the blood pressure near 120 / 80 mm Hg.Her LVEDP was 12-14 mm of Hg. 4. Dyslipidemia she is on atorvastatin 40 mg a day. Tolerating well. 5. COPD; due to smoking. she is on Lasix 20 mg a day at present she is well compensated no signs of fluid overload. Most likely she will have a pulmonary hypertension. Detailed consent was obtained. The risk and benefit of the procedure were discussed with the patient. The patient is undergoing left heart catheterization. Pt labs were reviewed prior to the procedure. PROCEDURE: 1. The patient was brought to the cardiac catheterization laboratory after informed consent. 2. I provided direct face to face monitoring for conscious sedation administered by independently trained nurse using 12.5 mcg of fentanyl and 0.5 mg of versed. I directly observed the patient for 120 minutes. 3. The right radial artery was prepped and draped under aseptic condition. 4. 2% Lidocaine was used for local anesthesia. 5. A 5F Maribel sheath was placed in the right radial artery using a short Cook needle with the modified Seldinger technique without any difficulty. 6. A 5F / 110-cm long Asa catheter 3.5 was placed over the Versacore wire in the ascending aorta without any difficulty. 6. Left ventricular hemodynamics were obtained and pullback pressure was obtained. 7. This catheter was used to cannulate the left coronary artery and images were obtained in different views. Same catheter was used to cannulate the right coronary artery without difficulty and images obtained in different views. 8. This catheter was removed over the versacore/ J-wire. No complications noted. 9. A TR-Band was applied to achieve patent hemostasis. 10. Medication used NTG 200 mcg + Verapamil 2.5 mg intraarterially and 5000 unit of heparin.given in Ascending aorta. 10. Contrast used 45 cc. 11. Fluoro time 1.9 minute. RESULTS: Left Heart Hemodynamics: The left ventricular end-diastolic pressure is 14-16 mmHg. There is no gradient on pull back across the aortic valve. Angiography: Left Ventriculogram:Not done. Selective Coronary Arteriography: Left Coronary System: 1. The left main coronary artery is patent, short vessel. 2. The circumflex coronary artery is non dominant vessel It does not give any major marginal branches, it trifurcate into posterolateral branches. One of this branch supplying posteriorly small in caliber is 50% stenosed at its origin. 3. The right coronary artery is dominant vessel, small in caliber diffuse luminal irregularities noted in proximal,mid and distal RCA. PDA and PLV branches have diffuse luminal irregularities 4. Th Left Anterior descending artery ;Stent present in proximal LAD, widely patent. Mid LAD after the diagonal vessel have 60-70% stenosis. Rest of the LAD is patent with luminal irregularities. Septal branches and rest of the diagonal vessels are patent. DIAGNOSTIC IMPRESSIONS: 1. Moderate stenosis of the mid LAD after the stent which is present in the proximal to mid LAD. Mild atherosclerotic disease in the other vessels 2. No gradient across aortic valve. 3. The left ventricular end-diastolic pressure is 14-16 mmHg. THERAPEUTIC RECOMMENDATIONS: I have discussed with the Dr. Ravinder Navarro MD interventional Cardiology. He felt it has a moderate lesion if he is clinically symptomatic then IFR of the LAD can be done. Patient had a nuclear stress test done on 01/14/2025 shows large nontransmural reversible perfusion defect of mild severity in the anterior apical and inferoapical wall with LVEF 66%. Compared to the previous study from 08/17/2023 the area of ischemia has increased in size. Will optimize medical treatment if fails then will consider for IFR of the mid LAD. The patient will follow-up with me in two- three weeks. I have discussed the findings in detail with the family. No complications were noted. Right radial artery arteriotomy site instructions were given to the patient. No complications were Noted. Pt remained hemodynamically stable. [id number] I personally performed or supervised the procedure reported above and was physically present during the entire procedure. This note was written using a voice recognition system hardware device. Please note there may be variance in spelling, ramona, and syntax because of the voice recognition system hardware. Therefore, not every sentence has been reviewed in its entirety. If there are any concerns about verbage above please contact me at [phone]. us Alen Romero MD CV CARDIAC CATH PROCEDURES Fin al Result * CBC with auto differential (01/29/2025 12:07 PM CDT) WBC 8.6 3.8 - 10.8 Thousand/u L [facility] RBC, POC 4.79 3.80 - 5.10 Million/uL [facility] Hgb 14.5 11.7 - 15.5 g/dL [facility] Hct 43.8 35.0 - 45.0 % [facility] MCV 91.4 80.0 - 100.0 fL [facility] MCH 30.3 27.0 - 33.0 pg [facility] MCHC 33.1 32.0 - 36.0 g/dL [facility] Comment: For adults, a slight decrease in the calculated MCHC value (in the range of 30 to 32 g/dL) is most likely not clinically significant; however, it should be interpreted with caution in correlation with other red cell parameters and the patient's clinical condition. Rdw 12.6 11.0 - 15.0 % [facility] Platelets 255 140 - 400 Thousand/u L [facility] MPV 10.6 7.5 - 12.5 fL [facility] Neutrophils, abs 5,624 1,500 - 7,800 cells/uL [facility] Lymphocytes, abs 2,012 850 - 3,900 cells/uL [facility] Monocyte abs 671 200 - 950 cells/uL [facility] Eosinophils, abs 249 15 - 500 cells/uL [facility] Basophils, abs 43 0 - 200 cells/uL [facility] Neutrophils 65.4 % [facility] Lymphocyte pct 23.4 % [facility] Monocytes 7.8 % [facility] Eosinophils 2.9 % [facility] Basophils 0.5 % [facility] Blood 01/29/2025 12:0 7 PM CDT 01/29/2025 12:08 PM CDT Narrative [facility] - 01/30/2025 1:31 AM CDT FASTING:YES FASTING: YES us Alen Romero MD LAB BLOOD ORDERABLES Final Res ult [facility] [address] [place] [address] * (ABNORMAL) Basic metabolic panel (01/29/2025 12:07 PM CDT) [facility] Glucose 112(H) 65 - 99 mg/dL [facility] Comment: Fasting reference interval For someone without known diabetes, a glucose value between 100 and 125 mg/dL is consistent with prediabetes and should be confirmed with a follow-up test. BUN 9 7 - 25 mg/dL [facility] Creatinine 0.72 0.50 - 1.05 mg/dL [facility] eGFR 93 > OR = 60 mL/min/1.7 3m2 [facility] BUN/creat ratio SEE NOTE: 6 - 22 (calc) [facility] Comment: Not Reported: BUN and Creatinine are within reference range. Sodium 140 135 - 146 mmol/L [facility] Potassium, pl 4.0 3.5 - 5.3 mmol/L [facility] Chloride 103 98 - 110 mmol/L [facility] CO2 31 20 - 32 mmol/L [facility] Calcium 8.5(L) 8.6 - 10.4 mg/dL [facility] Blood 01/29/2025 12:0 7 PM CDT 01/29/2025 12:08 PM CDT Narrative [facility] - 01/30/2025 1:31 AM CDT FASTING:YES FASTING: YES us Alen Romero MD LAB BLOOD ORDERABLES Final Res ult [facility] [address] [place] [address] * NM MPI SPECT (Rest and/or Stress) Multiple Studies (01/14/2025 1:11 PM CDT) Anatomical Region Laterality Modality Body N/A Electrocardiogra phy Narrative 01/14/2025 10:15 PM CDT Table formatting from the original result was not included. [facility] [address] [address] Nuclear MPI Pharmaceutical Study Patient Name: Skip Bonilla Gender: female : 1960 Date of Study: 01/14/25 Ordering Provider: Alen Romero MD Primary care Provider: Anand Rowe MD Pt BMI: 43 Examination Myocardial Perfusion Imaging: Pharmacologic/Spect with Gated Imaging and Ejection Fraction Measurement. Cardiac History PCI. Reason for Examination CAD and chest pain. Cardiac Risk Factors hypertension and dyslipidemia. Stress Procedure Baseline or Resting EKG Sinus Bradycardia Low voltage qrs, abnormal Pharmaceutical Parameters: Chemical Test duration: 5 min 01 sec. Baseline BP: 136 / 83 mm Hg Baseline HR: 64 /min Peak BP: 136 / 83 mm Hg Peak HR: 93 /min 60 % of PMHR HR Response to Pharmaceutical: Normal BP Response to Pharmaceutical: Normal Functional Capacity: below average ST changes: None Symptoms during Pharmaceutical Injection : headache, short of breath, resolved during recovery Reasons for Termination: End of Protocol Nuclear Procedure Radiopharmaceutical: 11.0 mCi Tc-99M Tetrofosmin IV for rest and 32.4 mCi Tc-99M Tetrofosmin IV for stress. Protocol: Standard myocardial perfusion images were obtained after resting injection of Tc-99M Tetrofosmin intravenously. Resting images were obtained after a 30 minutes delay. Subsequently, an intravenous infusion of 0.4 mg/5ml Regadenoson given over a 10 second injection was given under the supervision of the physician. Tc-99M tetrofosimin was injected intravenously 10-20 seconds post lexiscan/saline flush injection and standard myocardial images were obtained after a 30 minute delay. Images are obtained with a solid state camera. Rest images are acquired in the upright position and stress images are obtained in both upright and supine positions. The overall quality of the study is good. Motion correction was not performed. Regadenoson MPI Stage Time BP HR Sitting 1219 136/83 62 Regadenoson 1237 1238 137/76 76 Recovery 1240 72 Images Interpretation Gated Spect imaging reveals a large reversible perfusion defect of mild severity in the anterior, apical, and inferoapical singh. LV wall motion normal. LV wall function normal with LVEF of 66% No LV dilatation present. No transischemic dilatation present. Impression Pharmaceutical Myocardial perfusion imaging is abnormal. Large nontransmural reversible perfusion defect of mild severity in the anterior, apical, and inferoapical singh. LV wall motion normal. LVEF = 66% No chest pain during stress and no ecg changes. Compared to the previous study from 08/17/2023, the area if ischemia has increased in size. Recommendation Left Cardiac Catherization. Finding discussed with the patient personally. Stress myocardial perfusion imaging has a known 10-15% false negative rate and a small (5-10%) false positive rate. Stress test supervised by Kimberlee Silva NP and images interpreted by Alen Romero MD. us Alen Romero MD [facility] PROCEDURES Final Result * TRANSTHORACIC ECHO (TTE) COMPLETE W DOPPLER/CF W CONTRAST (01/14/2025 11:18 AM CDT) Anatomical Region Laterality Modality Ultrasound 01/14/2025 10:3 6 AM CDT Narrative 01/14/2025 9:55 PM CDT [facility], [address] [place] [address] Transthoracic Echocardiographic Report Patient Name: SKIP BONILLA L : 1960 (65y ) Gender: F Study Date: 01/14/2025 10:36:02 AM Ht(Inch): 60 Wt(Lb): 225 BSA: 2.08 Paper Novelty Maker: LEONIDAS To,[facility] Location: [facility] [place] Order Provider: ALEN ROMERO Heart Rate: 68 BMI: 43.94 BP: 132 / 79 Ref Provider: ALEN ROMERO PROCEDURES: Echocardiographic Report: Transthoracic complete echo with strain imaging and contrast, 2D, spectral and tissue Doppler, color flow Doppler, M-mode. Contrast: Contrast Enhancement was Employed: After initial imaging due to sub- optimal quality related to co-morbidity defined by patient's body habitus and due to suboptimal image quality with inadequate visualization of at least 2 of 16 LV wall segments in any view after initial imaging. Perflutren contrast was administered using the volume necessary to obtain adequate images. 1.1 ml Optison Administered, (1.9 ml wasted). Technically difficult study due to: Technically difficult study due to Body habitus. Technically difficult study due to Poor acoustic windows. 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 CONCLUSIONS: 1. Normal LV wall thickness. Normal left ventricular systolic function. The Ejection Fraction (Murillo's) is measured at 59 %. Grade I diastolic dysfunction (normal LA pressure). The average global longitudinal strain is normal. 2. There are no regional wall motion abnormalities. 3. Normal right ventricular size. Normal right ventricular systolic function. 4. Mitral valve leaflets appear mildly thickened. Trace mitral valve regurgitation.No MS noted. 5. Trileaflet aortic valve. Mildly thickened aortic valve leaflets. No aortic regurgitation. No aortic valve stenosis. The mean transaortic gradient is 5 mmHg. The aortic valve area by the continuity equation (using VTI) is 2.57 cm2. Aortic valve dimensionless index is 0.86. 6. Normal tricuspid valve structure. Mild tricuspid regurgitation.No TS noted. The estimated pulmonary artery systolic pressure is 29+RA mmHg. ATTESTATION: 1I have personally reviewed and interpreted this study without fellow or resident. DISCLAIMER: The study images and the final report will be retained in the patient chart by the [facility] for the legally required time period. This chart constitutes the legal record of any testing performed. FINDINGS: Left Ventricle: Normal left ventricular size based on volume index. Normal LV wall thickness. Normal left ventricular systolic function. The Ejection Fraction (Murillo's) is measured at 59 %. Grade I diastolic dysfunction (normal LA pressure). The average global longitudinal strain is normal. The LV global strain is: -18.4 %. Regional Wall Motion: There are no regional wall motion abnormalities. Right Ventricle: Normal right ventricular size. Normal right ventricular systolic function. Left Atrium: The left atrium is normal in size. Right Atrium: The right atrium is normal in size. Atrial Septum: Normal interatrial septum. Mitral Valve: Mitral valve leaflets appear mildly thickened. Trace mitral valve regurgitation.No MS noted. Aortic Valve: Trileaflet aortic valve. Mildly thickened aortic valve leaflets. No aortic regurgitation. No aortic valve stenosis. The mean transaortic gradient is 5 mmHg. The aortic valve area by the continuity equation (using VTI) is 2.57 cm2. Aortic valve dimensionless index is 0.86. Tricuspid Valve: Normal tricuspid valve structure. Mild tricuspid regurgitation.No TS noted. The estimated pulmonary artery systolic pressure is 29+RA mmHg. Pulmonic Valve: Normal pulmonic valve structure.No OR/PS noted. Pericardium: Normal pericardium without pericardial effusion. No pericardial effusion. Aorta: Normal aortic root. The ascending aorta is normal in size when indexed. MEASUREMENTS: 2D/MM Value Range Doppler Value Range LVIDd 2D 4.72 cm [ 3.80 - 5.20 ] AV Peak Jony 1.6 m/s [ 1.0 - 1.7 ] LVIDs 2D 3.15 cm [ 2.20 - 3.50 ] AV Peak PG 10.24 mmHg IVSd 2D 0.87 cm [ 0.60 - 0.90 ] AV Mean PG 5 mmHg LVPWd 2D 0.86 cm [ 0.60 - 0.90 ] AV VTI 33.8 cm LV Thickness Ratio 1.0 LVOT Peak Jony 1.3 m/s [ 0.7 - 1.1 ] LV FS 2D 33.30 % [ 27.00 - 45.00 ] LVOT Peak PG 6.76 mmHg LV Mass 2D 139.73 g LVOT Mean PG 3 mmHg LV Mass Index 2D 67.18 g/m2 LVOT VTI 29.1 cm RWT 0.36 LVOT Diam 1.95 cm EDV Mod BP 92.08 ml [ 46.00 - 106.00 ] PREET VTI 2.57 cm2 LV EDV Index 44.27 ml/m2 LVOT/AV VTI 0.86 - Dimensionless index (DVI) ESV Mod BP 37.86 ml [ 14.00 - 42.00 ] MV E Peak Jony 1.1 m/s [ 0.6 - 1.3 ] EF Mod BP 59 % [ 54 - 74 ] MV A Peak Jony 1.1 m/s [ 1.0 - 1.2 ] LV GLS -18.4 % [ -18.0 - -16.0 ] MV E/A 1.0 ratio [ 0.8 - 1.5 ] LA Dimension 2D 3.31 cm [ 2.70 - 3.80 ] MV Decel Time 243.52 msec [ 104.00 - 258.00 ] LA Length 4C 4.78 cm Med E` Jony 8.7 cm/sec [ 8.0 - 15.0 ] LA Length 2C 4.77 cm Lat E` Jony 10.5 cm/sec [ 10.0 - 15.0 ] LA Volume BP 40.37 ml Average E/E` 11.46 LA Volume Index 19.41 ml/m2 [ 16.00 - 34.00 ] RV S` 12.60 cm/sec RV Base Dimen 2D 3.0 cm [ 2.5 - 4.2 ] TR Peak Jony 2.7 m/s [ 1.0 - 2.8 ] TAPSE 2.36 cm [ 1.71 - 5.00 ] TR Peak PG 29.2 mmHg RA Volume 27.12 ml PV Peak Jony 1.3 m/s [ 0.4 - 0.8 ] RA Volume Index 13.04 ml/m2 PV Peak PG 6.76 mmHg Asc Ao Diam 2D 2.54 cm Asc Ao Index 1.22 cm/m2 Electronically Signed By: Alen Romero MD 01/14/2025 9:54:16 PM CDT Procedure Note Alen Romero MD - 01/14/2025 [facility], [address] [place] [address] Transthoracic Echocardiographic Report Patient Name: SKIP BONILLA L : 1960 (65y ) Gender: F Study Date: 01/14/2025 10:36:02 AM Ht(Inch): 60 Wt(Lb): 225 BSA: 2.08 Paper Novelty Maker: LEONIDAS To,[facility] Location: [facility] [place] Order Provider:ALEN ROMERO Heart Rate: 68 BMI: 43.94 BP: 132 / 79 Ref Provider: ALEN ROMERO PROCEDURES: Echocardiographic Report: Transthoracic complete echo with strain imagingand contrast, 2D, spectral and tissue Doppler, color flow Doppler, M-mode. Contrast: Contrast Enhancement was Employed: After initial imaging due tosub- optimal quality related to co-morbidity defined by patient's body habitus and dueto suboptimal image quality with inadequate visualization of at least 2 of 16 LV wallsegments in any view after initial imaging. Perflutren contrast was administered using thevolume necessary to obtain adequate images. 1.1 ml Optison Administered, (1.9 mlwasted). Technically difficult study due to: Technically difficult study due toBody habitus. Technically difficult study due to Poor acoustic windows. 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 CONCLUSIONS: 1. Normal LV wall thickness. Normal left ventricular systolic function.The Ejection Fraction (Murillo's) is measured at 59 %. Grade I diastolic dysfunction(normal LA pressure). The average global longitudinal strain is normal. 2. There are no regional wall motion abnormalities. 3. Normal right ventricular size. Normal right ventricular systolicfunction. 4. Mitral valve leaflets appear mildly thickened. Trace mitral valveregurgitation.No MS noted. 5. Trileaflet aortic valve. Mildly thickened aortic valve leaflets. Noaortic regurgitation. No aortic valve stenosis. The mean transaortic gradient is5 mmHg. The aortic valve area by the continuity equation (using VTI) is 2.57 cm2.Aortic valve dimensionless index is 0.86. 6. Normal tricuspid valve structure. Mild tricuspid regurgitation.No TSnoted. The estimated pulmonary artery systolic pressure is 29+RA mmHg. ATTESTATION: 1I have personally reviewed and interpreted this study without fellow orresident. DISCLAIMER: The study images and the final report will be retained in the patientchart by the Echo Laboratory for the legally required time period. This chart constitutesthe legal record of any testing performed. FINDINGS: Left Ventricle: Normal left ventricular size based on volume index. NormalLV wall thickness. Normal left ventricular systolic function. The EjectionFraction (Murillo's) is measured at 59 %. Grade I diastolic dysfunction (normal LA pressure).The average global longitudinal strain is normal. The LV global strain is: -18.4 %. Regional Wall Motion: There are no regional wall motion abnormalities. Right Ventricle: Normal right ventricular size. Normal right ventricularsystolic function. Left Atrium: The left atrium is normal in size. Right Atrium: The right atrium is normal in size. Atrial Septum: Normal interatrial septum. Mitral Valve: Mitral valve leaflets appear mildly thickened. Trace mitralvalve regurgitation.No MS noted. Aortic Valve: Trileaflet aortic valve. Mildly thickened aortic valveleaflets. No aortic regurgitation. No aortic valve stenosis. The mean transaortic gradient is5 mmHg. The aortic valve area by the continuity equation (using VTI) is 2.57 cm2.Aortic valve dimensionless index is 0.86. Tricuspid Valve: Normal tricuspid valve structure. Mild tricuspidregurgitation.No TS noted. The estimated pulmonary artery systolic pressure is 29+RA mmHg. Pulmonic Valve: Normal pulmonic valve structure.No OR/PS noted. Pericardium: Normal pericardium without pericardial effusion. Nopericardial effusion. Aorta: Normal aortic root. The ascending aorta is normal in size whenindexed. MEASUREMENTS: 2D/MM Value Range DopplerValue Range LVIDd 2D 4.72 cm [ 3.80 - 5.20 ] AV Peak Vel1.6 m/s [ 1.0 - 1.7 ] LVIDs 2D 3.15 cm [ 2.20 - 3.50 ] AV Peak PG10.24 mmHg IVSd 2D 0.87 cm [ 0.60 - 0.90 ] AV Mean PG5 mmHg LVPWd 2D 0.86 cm [ 0.60 - 0.90 ] AV VTI33.8 cm LV Thickness Ratio 1.0 LVOT Peak Vel1.3 m/s [ 0.7 - 1.1 ] LV FS 2D 33.30 % [ 27.00 - 45.00 ] LVOT Peak PG6.76 mmHg LV Mass 2D 139.73 g LVOT Mean PG3 mmHg LV Mass Index 2D 67.18 g/m2 LVOT VTI29.1 cm RWT 0.36 LVOT Diam1.95 cm EDV Mod BP 92.08 ml [ 46.00 - 106.00 ] PREET VTI2.57 cm2 LV EDV Index 44.27 ml/m2 LVOT/AV VTI0.86 - Dimensionless index (DVI) ESV Mod BP 37.86 ml [ 14.00 - 42.00 ] MV E Peak Vel1.1 m/s [ 0.6 - 1.3 ] EF Mod BP 59 % [ 54 - 74 ] MV A Peak Vel1.1 m/s [ 1.0 - 1.2 ] LV GLS -18.4 % [ -18.0 - -16.0 ] MV E/A1.0 ratio [ 0.8 - 1.5 ] LA Dimension 2D 3.31 cm [ 2.70 - 3.80 ] MV Decel Jiwm112.52 msec [ 104.00 - 258.00 ] LA Length 4C 4.78 cm Med E` Vel8.7 cm/sec [ 8.0 - 15.0 ] LA Length 2C 4.77 cm Lat E` Vel10.5 cm/sec [ 10.0 - 15.0 ] LA Volume BP 40.37 ml Average E/E`11.46 LA Volume Index 19.41 ml/m2 [ 16.00 - 34.00 ] RV S`12.60 cm/sec RV Base Dimen 2D 3.0 cm [ 2.5 - 4.2 ] TR Peak Vel2.7 m/s [ 1.0 - 2.8 ] TAPSE 2.36 cm [ 1.71 - 5.00 ] TR Peak PG29.2 mmHg RA Volume 27.12 ml PV Peak Vel1.3 m/s [ 0.4 - 0.8 ] RA Volume Index 13.04 ml/m2 PV Peak PG6.76 mmHg Asc Ao Diam 2D2.54 cm Asc Ao Index1.22 cm/m2 Electronically Signed By: Alen Romero MD 01/14/2025 9:54:16 PM CDT us Alen Romero MD CV ECHO PROCEDURES Final Resul t * MRI Abdomen Liver W WO Contrast (12/13/2024 10:16 AM CARD ROOM MANAGER) Anatomical Region Laterality Modality Body N/A Magnetic Resonan ce 12/13/2024 11:1 7 AM CARD ROOM MANAGER Impressions 12/14/2024 7:25 PM CARD ROOM MANAGER 1. 1.3 cm focus of arterial enhancement in hepatic segment 5/6 which may represent a LR3 observation or be perfusional given its somewhat linear configuration. Continued attention on follow-up. 2. Cirrhotic morphology of the liver with likely reactive periportal lymph nodes. 3. Linear area of enhancement in the soft tissues of the right flank which is stable from 2020. This is of uncertain clinical significance and may represent sequale of a prior biopsy if the patient has the corresponding history. Dictated by: Guy Huff M.D. The radiology attending physician has personally reviewed this study, and had reviewed and/or edited this written report and agrees with it. Electronically signed by: Alberta Machado M.D. Narrative 12/14/2024 7:25 PM CARD ROOM MANAGER EXAMINATION: MAGNETIC RESONANCE IMAGING OF THE ABDOMEN WITH AND WITHOUT CONTRAST HISTORY: Cirrhosis. Indeterminate lesion on ultrasound dated 11/30/2024 TECHNIQUE: Magnetic resonance imaging of the abdomen was performed prior to and following the uneventful administration of intravenous Gadolinium contrast. Protocol: Liver Contrast: gadoterate 20 mL COMPARISON: Ultrasound dated 11/30/2024 FINDINGS: Liver: Surface nodularity compatible with cirrhosis. There is hypertrophy of the lateral segment of the left hepatic lobe and of the caudate lobe. - Bile ducts: Nondilated - Focal liver lesions: There is a 1.3 cm observation with somewhat linear configuration within segment V/ which demonstrates early arterial enhancement, which becomes isointense to the parenchymal background. There are no T2 or diffusion changes at this level. No washout or pseudocapsule. - Vasculature: Patent Gallbladder: Gallbladder is surgically absent. Pancreas: Unremarkable Spleen: Unremarkable Adrenals: Unremarkable Kidneys: Symmetric renal cortical enhancement without hydronephrosis. No discrete renal lesions. Other Findings: Linear area of enhancement within the subcutaneous tissues overlying the right flank at the level of the 11th rib (series 13 image 45). This finding is unchanged from the CT dated 07/30/2021. There are multiple periportal and peripancreatic lymph nodes, which are unchanged from 07/29/2021 and are likely reactive. Procedure Note Alberta Machado MD - 12/14/2024 EXAMINATION: MAGNETIC RESONANCE IMAGING OF THE ABDOMEN WITH AND WITHOUT CONTRAST HISTORY: Cirrhosis. Indeterminate lesion on ultrasound dated 11/30/2024 TECHNIQUE: Magnetic resonance imaging of the abdomen was performed prior to and following the uneventful administration of intravenous Gadolinium contrast. Protocol: Liver Contrast: gadoterate 20 mL COMPARISON: Ultrasound dated 11/30/2024 FINDINGS: Liver: Surface nodularity compatible with cirrhosis. There is hypertrophy of the lateral segment of the left hepatic lobe and of the caudate lobe. - Bile ducts: Nondilated - Focal liver lesions: There is a 1.3 cm observation with somewhat linear configuration within segment V/ which demonstrates early arterial enhancement, which becomes isointense to the parenchymal background. There are no T2 or diffusion changes at this level. No washout or pseudocapsule. - Vasculature: Patent Gallbladder: Gallbladder is surgically absent. Pancreas: Unremarkable Spleen: Unremarkable Adrenals: Unremarkable Kidneys: Symmetric renal cortical enhancement without hydronephrosis. No discrete renal lesions. Other Findings: Linear area of enhancement within the subcutaneous tissues overlying the right flank at the level of the 11th rib (series 13 image 45). This finding is unchanged from the CT dated 07/30/2021. There are multiple periportal and peripancreatic lymph nodes, which are unchanged from 07/29/2021 and are likely reactive. IMPRESSION: 1. 1.3 cm focus of arterial enhancement in hepatic segment 5/6 which may represent a LR3 observation or be perfusional given its somewhat linear configuration. Continued attention on follow-up. 2. Cirrhotic morphology of the liver with likely reactive periportal lymph nodes. 3. Linear area of enhancement in the soft tissues of the right flank which is stable from 2020. This is of uncertain clinical significance and may represent sequale of a prior biopsy if the patient has the corresponding history. Dictated by: Guy Huff M.D. The radiology attending physician has personally reviewed this study, and had reviewed and/or edited this written report and agrees with it. Electronically signed by: Alberta Machado M.D. Kavita Dunn MD [facility] MRI PROCEDURES F inal Result * Hepatitis C antibody (09/02/2022 10:50 AM CDT) Hep C Ab NON-REACTI VE NON-REACT CARLIN [facility] SIGNAL TO CUT-OFF 0.02 <1.00 [facility] Comment: HCV antibody was non-reactive. There is no laboratory evidence of HCV infection. In most cases, no further action is required. However, if recent HCV exposure is suspected, a test for HCV RNA (test code 44286) is suggested. For additional information please refer to http://education.quest[facility].com/faq/VVE66s1 (This link is being provided for informational/ educational purposes only.) 09/02/2022 10:5 0 AM CDT 09/02/2022 10:52 AM CDT Kavita Dunn MD LAB MICROBIOLOGY - G ENERAL ORDERABLES Final Result Performing Organization Address City/State/[facility] Co mt Phone Number [facility] [address] [phone] from Last 3 Months or Most Recently Relevant to Health Maintenance Insurance [facility] MEDICARE ADVANTAGE [facility] MEDICARE Address: [address] [address] [place] [address] [employer] [facility] MEDICARE ADVANTAGE [facility] MEDICARE Address: [address] [address] [place] [address] [employer] MEDICARE ADVANTAGE [facility] MEDICARE Address: [address] [address] [place] [address] Advance Directives For more information, please contact: [phone] * Full Code (Latest Code Status on File) Date Activated Date Inactivated Comments 02/08/2025 7:13 AM 02/09/2025 4:43 AM * Full Code Date Activated Date Inactivated Comments 08/20/2022 8:42 AM 08/21/2022 4:33 AM * Full Code Date Activated Date Inactivated Comments 05/28/2021 3:25 PM 05/28/2021 11:26 PM * Full Code Date Activated Date Inactivated Comments 05/20/2021 6:33 PM 05/21/2021 7:49 PM Care Teams Director Embalmer Relationship Specialty Start Date End Date Anand Rowe MD PCP - General Emergency Medicine 05/22/20
--- OUTSIDE RECORDS SUMMARY | 2025-03-07 08:45 | XMS_ITS | Referral Summary ---
Author Organization [facility] Address [address] [place] [address] Care Team Providers Care Project Economist Name Role Phone Anand Rowe MD Primary Care Provider [phone] Encounters Date Type Department Care Team Description 02/26/2025 Telephone [facility] [address] [facility] [address] [place] [address] Alen Romero MD IFR RSC'd 02/19/2025 Telephone [facility] [address] [facility] Medical Office Building [address] [place] [address] Alen Romero MD 02/19/[address] [place] [phone] Alen Romero MD C/IFR insurance auth 02/12/2025 Telephone [facility] Medicine 8th [place] [address] [place] [address] Alen Romero MD Medication clarification 02/11/2025 Telephone [facility] [address] [place] [address] [place] [address] Alen Romero MD Med Management 02/08/2025 Telephone [facility] [address] [place] [address] [place] [address] Alen Romero MD 02/08/2025 Telephone [facility] [address] [place] [address] Alen Romero MD IFR needed 02/08/2025 8:35 AM CDT - 02/08/2025 9:40 AM CDT Surgery [address] [place] [address] Alen Romero MD LEFT HEART CATHETERIZATION WITH CORONARY ANGIOGRAPHY AND WITH OR WITHOUT LEFT VENTRICULOGRAM [address] 02/08/2025 8:35 AM CDT - 02/08/2025 11:59 PM CDT Hospital Encounter [address] [place] [address] lAen Romero MD 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; Chest pain, unspecified type; Abnormal stress test Discharge Disposition: Discharge to home or self care 02/04/2025 Telephone [facility] [address] [place] [address] Advanced Medicine 8th [place] [address] [place] [address] Alen Romero MD 01/30/2025 Results Follow-Up [facility] [address] [place] [address] Office Building [address] [place] [address] Minna Anderson Aubrey 01/15/2025 Results Follow-Up [facility] [address] [place] [address] Medicine 8th [place] [address] [place] [address] Jane Vallejo RN 01/14/2025 Telephone [facility] [address] [place] [address] [place] [address] Alen Romero MD [facility] scheduling 01/14/2025 Telephone [facility] [address] [place] [address] Office Building [address] [place] [address] Alen Romero MD [facility] paperwork 01/14/2025 10:00 AM CDT Office Visit [facility] [address] [place] [address] [place] [address] Alen Romero MD Pre-operative cardiovascular examination (Primary Dx); Coronary artery disease with angina pectoris, unspecified vessel or lesion type, unspecified whether [place] ira or transplanted heart; Dyslipidemia 01/14/2025 11:30 AM CDT Ancillary Procedure [facility] [address] [facility] [address] [place] [address] 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; Chest pain, unspecified type 01/14/2025 10:30 AM CDT Ancillary Procedure [facility] [address] [facility] [address] [place] [address] 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; Chest pain, unspecified type 12/24/2024 Telephone [facility] [address] [place] [address] [place] [address] Mead, Radha, CMA 12/13/2024 8:48 AM TECHNICAL PHOTOGRAPHER - 12/13/2024 11:59 PM TECHNICAL PHOTOGRAPHER Hospital Encounter [facility] at [facility] [address] [place] [address] Other cirrhosis of liver (HCC); Hepatic steatosis Discharge Disposition: Discharge to home or self care from Last 3 Months Allergies Active Allergy Reactions Criticality Noted Date [...] (08/02/2022): Added automatically from request for surgery [id number] Abnormal findings on cardiac catheterization Overview (05/22/2021): Added automatically from request for surgery [id number] Traumatic hematoma of wrist, right, initial enco [...] artery disease of n ative artery of shish[place] ira heart with stable angina pectoris 05/03/2021 Overview (05/03/2021): Added automatically from request for surgery [id number] Assessment & Plan (05/21/2021 11:33 AM CDT): [...] (05/03/2021): Added automatically from request for surgery [id number] Social History Tobacco Use Types Packs/Day Years [...] on file Legal Sex Female 5:38 PM TECHNICAL PHOTOGRAPHER Gender Identity Not on file Sexual Orientation Not on file Last Filed Vital Signs Vital Sign Reading [...] Description 03/13/2025 8:45 AM CDT Hospital Encounter [facility] [address] [place] [address] Mary Navarro MD [address] [place] [address] 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; Chest pain, unspecified type; Abnormal findings on cardiac catheterization 03/13/2025 8:45 AM CDT - 03/13/2025 10:50 AM CDT Surgery [facility] [address] [place] [address] Mary Navarro MD [address] [place] [address] CORONARY FLOW VELOCITY (CFR) / FRACTIONAL FLOW VELOCITY (FFR), 1ST VESSEL (+) [id number] Medical Devices Implanted Type Area Audit Reviewer Device Identifier Shelf Expiration Date Model / Serial / Lot [employer] [place] [id number] Synergy 3mm 28mm 144cm Radiopaque 1 Access Port Inflation Lumen - [id number] Implanted:Qty: 1 on 05/28/2021 by Charlie Ambrocio MD PhD at [facility] Stent [employer] [place] 01/08/2023 [id number] / / [id number] [employer] [place] [id number] Angio-Seal Evolution 6fr .035in Guidewire Bypass Tube Suture - [id number] Implanted:Qty: 1 on 05/28/2021 by Charlie Ambrocio MD PhD at [facility] Stent [employer] [place] 01/04/2022 [id number] / / [id number] Procedures Procedure Name Priority Date/Time Associated Diagnosis Comments BASIC METABOLIC PANEL Routine 02/18/2025 12:58 PM CDT 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 Chest pain, unspecified type Abnormal stress test HTN (hypertension), benign Pre-procedure lab exam CBC WITH AUTO DIFFERENTIAL Routine 02/18/2025 12:58 PM CDT 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 Chest pain, unspecified type Abnormal stress test HTN (hypertension), benign Pre-procedure lab exam LEFT HEART CATHETERIZATION WITH CORONARY ANGIOGRAPHY AND WITH AND WITHOUT LEFT VENTRICULOGRAM Routine 02/08/2025 8:42 AM CDT 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 Chest pain, unspecified type Abnormal stress test CBC WITH AUTO DIFFERENTIAL Routine 01/29/2025 12:07 PM CDT Pre-operative cardiovascular examination BASIC METABOLIC PANEL Routine 01/29/2025 12:07 PM CDT Pre-operative cardiovascular examination NM MPI SPECT (REST AND/OR STRESS) MULTIPLE STUDIES Schedule Routine, Read Routine (OP Routine) 01/14/2025 1:11 PM CDT 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 Chest pain, unspecified type TRANSTHORACIC ECHO (TTE) COMPLETE W DOPPLER/CF W CONTRAST Routine 01/14/2025 11:18 AM CDT 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 Chest pain, unspecified type MRI ABDOMEN LIVER W WO CONTRAST Schedule Routine, Read Routine (OP Routine) 12/13/2024 10:16 AM TECHNICAL PHOTOGRAPHER Other cirrhosis of liver (HCC) Hepatic steatosis HEPATITIS C ANTIBODY Routine 09/02/2022 10:50 AM CDT from Last 3 Months or Most Recently Relevant to Health Maintenance Results * CBC with auto differential (02/18/2025 12:58 PM CDT) WBC 8.2 3.8 - 10.8 Thousand/u L [facility] RBC, POC 4.49 3.80 - 5.10 Million/uL [facility] Hgb 13.7 11.7 - 15.5 g/dL [facility] Hct 41.7 35.0 - 45.0 % [facility] MCV 92.9 80.0 - 100.0 fL [facility] MCH 30.5 27.0 - 33.0 pg [facility] MCHC 32.9 32.0 - 36.0 g/dL [facility] Comment: For adults, a slight decrease in the calculated MCHC value (in the range of 30 to 32 g/dL) is most likely not clinically significant; however, it should be interpreted with caution in correlation with other red cell parameters and the patient's clinical condition. Rdw 12.9 11.0 - 15.0 % [facility] Platelets 265 140 - 400 Thousand/u L [facility] MPV 10.7 7.5 - 12.5 fL [facility] Neutrophils, abs 5,166 1,500 - 7,800 cells/uL [facility] Lymphocytes, abs 1,976 850 - 3,900 cells/uL [facility] Monocyte abs 672 200 - 950 cells/uL [facility] Eosinophils, abs 328 15 - 500 cells/uL [facility] Basophils, abs 57 0 - 200 cells/uL [facility] Neutrophils 63 % [facility] Lymphocyte pct 24.1 % [facility] Monocytes 8.2 % [facility] Eosinophils 4.0 % [facility] Basophils 0.7 % [facility] Blood 02/18/2025 12:5 8 PM CDT 02/18/2025 12:59 PM CDT Narrative [facility] - 02/19/2025 2:02 AM CDT FASTING:NO FASTING: NO us Alen Romero MD LAB BLOOD ORDERABLES Final Res ult [facility] [address] [place] [address] * Basic metabolic panel (02/18/2025 12:58 PM CDT) [facility] Glucose 131 65 - 139 mg/dL [facility] Comment: Non-fasting reference interval BUN 13 7 - 25 mg/dL [facility] Creatinine 0.74 0.50 - 1.05 mg/dL [facility] eGFR 90 > OR = 60 mL/min/1.7 3m2 [facility] BUN/creat ratio SEE NOTE: 6 - 22 (calc) [facility] Comment: Not Reported: BUN and Creatinine are within reference range. Sodium 139 135 - 146 mmol/L [facility] Potassium, pl 4.5 3.5 - 5.3 mmol/L [facility] Chloride 103 98 - 110 mmol/L [facility] CO2 32 20 - 32 mmol/L [facility] Calcium 8.6 8.6 - 10.4 mg/dL [facility] Blood 02/18/2025 12:5 8 PM CDT 02/18/2025 12:59 PM CDT Narrative [facility] - 02/19/2025 2:02 AM CDT FASTING:NO FASTING: NO us Alen Romero MD LAB BLOOD ORDERABLES Final Res ult [facility] [address] [place] [address] * LEFT HEART CATHETERIZATION WITH CORONARY ANGIOGRAPHY AND WITH AND WITHOUT LEFT VENTRICULOGRAM (02/08/2025 8:42 AM CDT) Anatomical Region Laterality Modality X-Ray Angiograph y Narrative 02/11/2025 8:28 AM CDT Table formatting from the original result was not included. CARDIAC CATHETERIZATION Patient: Skip Bonilla [id number] : 1960 Date of Service: 02/08/2025 FINAL [...] she had a cardiac catheterization done at [facility] on 05/15/2020. Report is as mentioned above [...] used for local anesthesia. 5. A 5F [place] sheath was placed in the right radial [...] complications were Noted. Pt remained hemodynamically stable. [id number] I personally performed or supervised the procedure [...] about verbage above please contact me at [phone]. us Alen Romero MD CV CARDIAC CATH PROCEDURES Fin al Result * CBC with auto differential (01/29/2025 12:07 PM CDT) WBC 8.6 3.8 - 10.8 Thousand/u L [facility] RBC, POC 4.79 3.80 - 5.10 Million/uL [facility] Hgb 14.5 11.7 - 15.5 g/dL [facility] Hct 43.8 35.0 - 45.0 % [facility] MCV 91.4 80.0 - 100.0 fL [facility] MCH 30.3 27.0 - 33.0 pg [facility] MCHC 33.1 32.0 - 36.0 g/dL [facility] Comment: For adults, a slight decrease in the calculated MCHC value (in the range of 30 to 32 g/dL) is most likely not clinically significant; however, it should be interpreted with caution in correlation with other red cell parameters and the patient's clinical condition. Rdw 12.6 11.0 - 15.0 % [facility] Platelets 255 140 - 400 Thousand/u L [facility] MPV 10.6 7.5 - 12.5 fL [facility] Neutrophils, abs 5,624 1,500 - 7,800 cells/uL [facility] Lymphocytes, abs 2,012 850 - 3,900 cells/uL [facility] Monocyte abs 671 200 - 950 cells/uL [facility] Eosinophils, abs 249 15 - 500 cells/uL [facility] Basophils, abs 43 0 - 200 cells/uL [facility] Neutrophils 65.4 % [facility] Lymphocyte pct 23.4 % [facility] Monocytes 7.8 % [facility] Eosinophils 2.9 % [facility] Basophils 0.5 % [facility] Blood 01/29/2025 12:0 7 PM CDT 01/29/2025 12:08 PM CDT Narrative [facility] - 01/30/2025 1:31 AM CDT FASTING:YES FASTING: YES us Alen Romero MD LAB BLOOD ORDERABLES Final Res ult [facility] [address] [place] [address] * (ABNORMAL) Basic metabolic panel (01/29/2025 12:07 PM CDT) Glucose 112(H) 65 - 99 mg/dL [facility] Comment: Fasting reference interval For someone without known diabetes, a glucose value between 100 and 125 mg/dL is consistent with prediabetes and should be confirmed with a follow-up test. BUN 9 7 - 25 mg/dL [facility] Creatinine 0.72 0.50 - 1.05 mg/dL [facility] eGFR 93 > OR = 60 mL/min/1.7 3m2 [facility] BUN/creat ratio SEE NOTE: 6 - 22 (calc) [facility] Comment: Not Reported: BUN and Creatinine are within reference range. Sodium 140 135 - 146 mmol/L [facility] Potassium, pl 4.0 3.5 - 5.3 mmol/L [facility] Chloride 103 98 - 110 mmol/L [facility] CO2 31 20 - 32 mmol/L [facility] Calcium 8.5(L) 8.6 - 10.4 mg/dL [facility] Blood 01/29/2025 12:0 7 PM CDT 01/29/2025 12:08 PM CDT Narrative [facility] - 01/30/2025 1:31 AM CDT FASTING:YES FASTING: YES us Alen Romero MD LAB BLOOD ORDERABLES Final Res ult [facility] [address] [place] [address] * NM MPI SPECT (Rest and/or Stress) Multiple Studies (01/14/2025 1:11 PM CDT) Anatomical Region Laterality Modality Body N/A Electrocardiogra phy Narrative 01/14/2025 10:15 PM CDT Table formatting from the original result was not included. [place] [address] [address] Nuclear MPI Pharmaceutical Study Patient Name: Skip [...] and images interpreted by Alen Romero MD. Alen Romero MD [facility] Final Result * TRANSTHORACIC ECHO (TTE) COMPLETE W DOPPLER/CF W CONTRAST (01/14/2025 11:18 AM CDT) Anatomical Region Laterality Modality Ultrasound 01/14/2025 10:3 6 AM CDT Narrative 01/14/2025 9:55 PM CDT [facility], [address] [place] [address] Transthoracic Echocardiographic Report Patient Name: SKIP BONILLA L : 1960 (65y ) Gender: F Study Date: 01/14/2025 10:36:02 AM Ht(Inch): 60 Wt(Lb): 225 BSA: 2.08 Merchandising Professor: LEONIDAS To,CS Location: [facility] Order Provider: ALEN ROMERO Heart Rate: 68 [...] windows. INDICATIONS: I25.118 Atherosclerotic heart disease of [place] ir[place] coronary artery with other forms of angina [...] mmHg. Pulmonic Valve: Normal pulmonic valve structure.No AR/PS noted. Pericardium: Normal pericardium without pericardial effusion. [...] Romero MD - 01/14/2025 [facility], [address] [place] [address] Transthoracic Echocardiographic Report Patient Name: SKIP BONILLA L : 1960 (65y ) Gender: F Study Date: 01/14/2025 10:36:02 AM Ht(Inch): 60 Wt(Lb): 225 BSA: 2.08 Merchandising Professor: LEONIDAS To,[facility] Location: [facility] Order Provider:ALEN ROMERO Heart Rate: 68 BMI: [...] windows. INDICATIONS: I25.118 Atherosclerotic heart disease of [place] coronary artery with otherforms of angina pectoris [...] mmHg. Pulmonic Valve: Normal pulmonic valve structure.No AR/PS noted. Pericardium: Normal pericardium without pericardial effusion. [...] [ 2.70 - 3.80 ] MV Decel Vpbt794.52 msec [ 104.00 - 258.00 ] LA [...] Liver W WO Contrast (12/13/2024 10:16 AM TECHNICAL PHOTOGRAPHER) Anatomical Region Laterality Modality Body N/A Magnetic Resonan ce 12/13/2024 11:1 7 AM TECHNICAL PHOTOGRAPHER Impressions 12/14/2024 7:25 PM TECHNICAL PHOTOGRAPHER 1. 1.3 cm focus of arterial enhancement [...] Alberta Machado M.D. Narrative 12/14/2024 7:25 PM TECHNICAL PHOTOGRAPHER EXAMINATION: MAGNETIC RESONANCE IMAGING OF THE ABDOMEN [...] by: Alberta Machado M.D. Kavita Dunn MD IMG MRI PROCEDURES F inal Result * Hepatitis [...] a test for HCV RNA (test code 96988) is suggested. For additional information please refer to http://education.InsideTrack/faq/BGI13n1 (This link is being provided for informational/ educational purposes only.) 09/02/2022 10:5 0 AM CDT 09/02/2022 10:52 AM CDT Kavita Dunn MD LAB MICROBIOLOGY - G ENERAL ORDERABLES Final Result [facility] [address] [place] [address] from Last 3 Months or Most Recently Relevant to Health Maintenance Insurance [id number] MEDICARE ADVANTAGE Member Subscriber Plan / Payer (Ef fective 2025-Present) Name:Skip Bonilla Relation to Subscriber:Self Name:Skip Bonilla Payer ID:[id number] (NAIC) Type:UHC MEDICARE Address: [place] [id number] [employer] [facility] MEDICARE ADVANTAGE Member Subscriber Plan / Payer (Ef fective 2025-Present) Name:Skip Bonilla Relation to Subscriber:Self Name:Skip Bonilla Payer ID:[id number] (NAIC) Type:UHC MEDICARE Address: [place] [id number] [employer] [facility] MEDICARE ADVANTAGE Advance Directives For more information, please contact: [phone] * Full Code (Latest Code Status on File) Date Activated Date Inactivated Comments 02/08/2025 7:13 AM 02/09/2025 4:43 AM * Full Code Date Activated Date Inactivated Comments 08/20/2022 8:42 AM 08/21/2022 4:33 AM * Full Code Date Activated Date Inactivated Comments 05/28/2021 3:25 PM 05/28/2021 11:26 PM * Full Code Date Activated Date Inactivated Comments 05/20/2021 6:33 PM 05/21/2021 7:49 PM Care Teams Project Economist Relationship Specialty Start Date End Date Anand Rowe MD PCP - General Emergency Medicine 05/22/20
--- OUTSIDE RECORDS SUMMARY | 2025-03-07 08:45 | XMS_ITS | Encounter Summary ---
Author Organization [facility] Address [address] [place] [address] Phone Care Team Providers Care Clerk Of Scales Name Role Phone Anand Rowe MD Primary Care Provider [phone] Encounter Details Date Type Department Care Team (Late st Contact Info) Description 09/02/2022 Orders Only [facility] GA[facility] Scanning, Provider Social History Tobacco Use Types Packs/Day Years Used Date Smoking Tobacco: Every Day Cigarettes 0.5 40 Smokeless Tobacco: Never AUDIT-C Answer Date Recorded Q1: How often do you have a drink containing alc ohol? Never 05/20/2021 Average Number of Drinks Not on file 021 Q3: How often do you have si x or more drinks on one occasion? Never 05/20/2021 Comments No Sex and Gender Information Value Date Recorded Sex Assigned at Not on file Legal Sex Female 5:38 PM HOSPITALIST NOCTURNIST PHYSICIAN Gender Identity Not on file Sexual Orientation Not on file documented as of this encounter Plan of Treatment Upcoming Encounters Date Type Department Care Team (Latest Contact Info) Description 03/13/2025 8:45 AM CDT Hospital Encounter [facility] [address] [place] [address] Mary Navarro MD [address] [facility] [address] [place] [address] Coronary artery disease of [place] artery of [place] heart with stable angina pectoris; Chest pain, unspecified type; Abnormal findings on cardiac catheterization 03/13/2025 8:45 AM CDT - 03/13/2025 10:50 AM CDT Surgery [facility] 1 [facility] [place] [address] Mary Navarro MD [address] [place] [address] CORONARY FLOW VELOCITY (CFR) / FRACTIONAL FLOW VELOCITY (FFR), 1ST VESSEL (+) [id number] documented as of this encounter Procedures Procedure Name Priority Date/Time Associated Diagnosis Comments SCAN - LABS 09/02/2022 documented in this encounter Results * SCAN - LABS (09/02/2022) us Provider Scanning Final Result documented in this encounter Visit Diagnoses Not on filedocumented in this encounter Additional Health Concerns Infection Onset Date Last Indicated Resolved Time COVID: Suspected 09/12/2024 09/12/2024 09/12/2024 3:33 PM HOSPITALIST NOCTURNIST PHYSICIAN documented as of this encounter Care Teams Clerk Of Scales Relationship Specialty Start Date End Date Anand Rowe MD PCP - General Emergency Medicine 05/22/20 documented as of this encounter
--- OUTSIDE RECORDS SUMMARY | 2025-03-07 08:45 | XMS_ITS | Clinical Summary ---
Author Organization [facility] Address [address] [place] [address] Care Team Providers Care Bulk Gas Specialist Name Role Phone Anand Rowe MD Primary Care Provider [phone] Allergies No known active allergies Medications VENTOLIN HFA 108 (90 Base) MCG/ACT inhaler 10/10/2018 Act taye fluticasone propionate 50 MCG/ACT nasal spray 12/05/2018 Active losartan 50 MG tablet Take 50 mg by mouth daily. 0 03/28/2019 Active simvastatin 20 MG tablet Take 20 mg by mouth every evening. 0 03/24/2019 Active Active Problems No known active problems Immunizations Immunization Administration Dates Next Due Tdap (Boostrix) 04/02/2021 Family History Medical History Relation Comments Emphysema Father liver cancer Father Relation Status Comments Father Social History Tobacco Use Types Packs/Day Years Used Date Smoking Tobacco: Every Day Cigarettes 0.7 46.3 Started: 1978 Smokeless Tobacco: Never Alcohol Use Standard Drinks/Week Comments No 0 (1 standard drink = 0.6 oz pur e alcohol) AUDIT-C Answer Date Recorded Frequency of Alcohol Consumption Never 04/18/2019 Average Number of Drinks Not on file Frequency of Binge Drinking Not on file 04/07 Comments No Sex and Gender Information Value Date Recorded Sex Assigned at Not on file Legal Sex Female 11:06 PM CDT Gender Identity Not on file Sexual Orientation Not on file Last Filed Vital Signs Vital Sign Reading Time Taken Comments Blood Pressure 135/77 04/02/2021 2:39 PM CDT Pulse 63 04/02/2021 2:39 PM CDT Temperature 36.7 C (98 F) 04/02/2021 10:27 AM CDT Respiratory Rate 20 04/02/2021 2:39 PM CDT Oxygen Saturation 100% 04/02/2021 2:39 PM CDT Inhaled Oxygen Concentration - - Weight 104.3 kg (230 lb) 04/02/2021 10:27 AM CDT Height 152.4 cm (5') 04/02/2021 10:27 AM CDT Body Mass Index 44.92 04/02/2021 10:27 AM CDT Plan of Treatment Health Maintenance Due Date Last Done Comments Colorectal Cancer Screening Colonoscopy (10 Years) 1960 Hepatitis C 01/11/1978 Pneumococcal Vaccine: 50+ Ye ars (1 of 2 - PCV) 01/11/1979 Mammogram Screening 2000 Zoster Vaccines (1 of 2) 01/11/2010 COVID-19 Vaccine (1 - 2023-2 5 season) 2024 Dexa Scan (General) 01/11/2025 DTaP, Tdap and Td Vaccines ( 2 - Td or Tdap) 04/02/2031 04/02/2021 RSV Immunization or 60+ Years (1 - 1-dose 75+ series) 01/11/2035 Meningococcal B Vaccine Aged Out No l onger eligible based on patient's age to complete this topic Meningococcal Vaccine Aged Out No salbador breanna eligible based on patient's age to complete this topic RSV Immunizations Under 20 Months Aged Out No longer eligible based on patient's age to complete this topic Insurance [facility] Care Teams Bulk Gas Specialist Relationship Specialty Start Date End Date Anand Rowe MD [address] [place] [id number] PCP - General FAMILY PRACTICE 04/18/19
--- OUTSIDE RECORDS SUMMARY | 2025-03-07 08:45 | XMS_ITS | Encounter Summary ---
Author Organization [facility] Address [address] [place] [address] Phone Care Team Providers Care Traffic Inspector Name Role Phone Anand Rowe MD Primary Care Provider [phone] Encounter Details Date Type Department Care Team (Latest Contact Info) Description 04/07/2021 Orders Only [facility] C[facility] Scanning, Provider Social History Tobacco Use Types Packs/Day Years Used Date Smoking Tobacco: Never Assessed Comments Unknown Sex and Gender Information Value Date Recorded Sex Assigned at Not on file Legal Sex Female 5:38 PM CHINESE LANGUAGE PROFESSOR Gender Identity Not on file Sexual Orientation Not on file documented as of this encounter Plan of Treatment Upcoming Encounters Date Type Department Care Team (Latest Contact Info) Description 03/13/2025 8:45 AM CDT Hospital Encounter [facility] [address] [place] [phone] Mary Navarro MD [address] [facility] [address] [place] [address] Coronary artery disease of [place] artery of [place] heart with stable angina pectoris; Chest pain, unspecified type; Abnormal findings on cardiac catheterization 03/13/2025 8:45 AM CDT - 03/13/2025 10:50 AM CDT Surgery [facility] [address] [place] [phone] Mary Navarro MD [address] [facility] [address] [place] [address] CORONARY FLOW VELOCITY (CFR) / FRACTIONAL FLOW VELOCITY (FFR), 1ST VESSEL (+) [id number] documented as of this encounter Procedures Procedure Name Priority Date/Time Associated Diagnosis Comments SCAN - LABS 04/07/2021 documented in this encounter Results * SCAN - LABS (04/07/2021) us Provider Scanning Final Result documented in this encounter Visit Diagnoses Not on filedocumented in this encounter Additional Health Concerns Infection Onset Date Last Indicated Resolved Time COVID: Suspected 09/12/2024 09/12/2024 09/12/2024 3:33 PM CHINESE LANGUAGE PROFESSOR documented as of this encounter Care Teams Traffic Inspector Relationship Specialty Start Date End Date Anand Rowe MD PCP - General Emergency Medicine 05/22/20 documented as of this encounter
--- OUTSIDE RECORDS SUMMARY | 2025-03-07 08:45 | XMS_ITS | Encounter Summary ---
Author Organization [facility] Address [address] [place] [address] Phone Care Team Providers Care Assembler Motor Vehicle Name Role Phone Anand Rowe MD Primary Care Provider [phone] Encounter Details Date Type Department Care Team (Late st Contact Info) Description 01/30/2025 Results Follow-Up [facility] Cardiology [facility] Medical Office Building [address] [place] [address] Minna Anderson RMA Social History Tobacco Use Types Packs/Day Years Used Date Smoking Tobacco: Every Day Cigarettes 0.5 40 Passive Smoke Exposure: Current Smokeless Tobacco: Never AUDIT-C Answer Date Recorded [...] making you feel afraid or unsafe? 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 Gender Identity Not on file Sexual Orientation Not on file documented as of this encounter Plan of Treatment Upcoming Encounters Date Type Department Care Team (Latest Contact Info) Description 03/13/2025 8:45 AM CDT Hospital Encounter [facility] 1 [place] [phone] Mary Navarro MD [address] [place] [address] Coronary artery disease of [place] artery of [place] heart with stable angina pectoris; Chest pain, unspecified type; Abnormal findings on cardiac catheterization 03/13/2025 8:45 AM CDT - 03/13/2025 10:50 AM CDT Surgery [facility] 1 [place] [address] Mary Navarro MD [address] [place] [address] CORONARY FLOW VELOCITY (CFR) / FRACTIONAL FLOW VELOCITY (FFR), 1ST VESSEL (+) [id number] documented as of this encounter Visit Diagnoses Not on filedocumented in this encounter Care Teams Assembler Motor Vehicle Relationship Specialty Start Date End Date Anand Roew MD PCP - General Emergency Medicine 05/22/20 documented as of this encounter
--- OUTSIDE RECORDS SUMMARY | 2025-03-07 08:45 | XMS_ITS | Encounter Summary ---
Author Organization [facility] Address [address] [place] [address] Phone Care Team Providers Care Network Technical Analyst Name Role Phone Anand Rowe MD Primary Care Provider [phone] Encounter Details Date Type Department Care Team (Late st Contact Info) Description 01/15/2025 Results Follow-Up 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 Gender Identity Not on file Sexual Orientation Not on file documented as of this encounter Plan of Treatment Upcoming Encounters Date Type Department Care Team (Latest Contact Info) Description 03/13/2025 8:45 AM CDT Hospital Encounter [facility] 1 [place] [phone] Mary Navarro MD [address] [place] [address] Coronary artery disease of [place] artery of [place] heart with stable angina pectoris; Chest pain, unspecified type; Abnormal findings on cardiac catheterization 03/13/2025 8:45 AM CDT - 03/13/2025 10:50 AM CDT Surgery [facility] 1 [place] [address] Mary Navarro MD [address] [place] [address] CORONARY FLOW VELOCITY (CFR) / FRACTIONAL FLOW VELOCITY (FFR), 1ST VESSEL (+) [id number] documented as of this encounter Visit Diagnoses Not on filedocumented in this encounter Care Teams Network Technical Analyst Relationship Specialty Start Date End Date Anand Rowe MD PCP - General Emergency Medicine 05/22/20 documented as of this encounter
--- OUTSIDE RECORDS SUMMARY | 2025-03-07 08:45 | XMS_ITS | Encounter Summary ---
Author Organization [facility] Address [address] [place] [address] Care Team Providers Care Medical Records Director Name Role Phone Anand Rowe MD Primary Care Provider [phone] Encounter Details Date Type Department Care Team (Late st Contact Info) Description 04/13/2021 Community Orders [facility] EpicCare Link Killian Gonzalez MD [address] [facility] [address] [place] [address] [phone] Other chest pain (Primary Dx); Other form of dyspnea Social History Tobacco Use Types Packs/Day Years Used Date Smoking Tobacco: Never Assessed Comments Unknown Sex and Gender Information Value Date Recorded Sex Assigned at Not on file 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 Female 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 Gender Identity Not on file Sexual Orientation Not on file documented as of this encounter Plan of Treatment Upcoming Encounters Date Type Department Care Team (Latest Contact Info) Description 03/13/2025 8:45 AM CDT Hospital Encounter [facility] Heart [facility] Vascular [address] [phone] Mary Navarro MD [address] [address] Coronary artery disease of [place] artery of [place] heart with stable angina pectoris; Chest pain, unspecified type; Abnormal findings on cardiac catheterization 03/13/2025 8:45 AM CDT - 03/13/2025 10:50 AM CDT Surgery [facility] Heart [facility] Vascular [address] [phone] Mary Navarro MD [address] [place] [address] CORONARY FLOW VELOCITY (CFR) / FRACTIONAL FLOW VELOCITY (FFR), 1ST VESSEL (+) [id number] documented as of this encounter Visit Diagnoses Diagnosis Other chest pain- Primary Other form of dyspnea Coronary artery disease of [place] artery of [place] heart with stable angina pectoris Chest pain, unspecified type Abnormal findings on cardiac catheterization Coronary artery disease of [place] artery of [place] heart with stable angina pectoris Chest pain, unspecified type Abnormal findings on cardiac catheterization documented in this encounter Orders Case Request Count Last Ordered Date First Orde red Date CASE REQUEST CENTER MEDICAL DIRECTOR 1 04/13/2021 documented in this encounter Additional Health Concerns Infection Onset Date Last Indicated Resolved Time COVID: Suspected 09/12/2024 09/12/2024 09/12/2024 3:33 PM 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 documented as of this encounter Care Teams Medical Records Director Relationship Specialty Start Date End Date Anand Rowe MD PCP - General Emergency Medicine 05/22/20 documented as of this encounter
--- OUTSIDE RECORDS SUMMARY | 2025-03-07 08:45 | XMS_ITS | Clinical Summary ---
[facility] Address [address] [place] [address] [place] [address] Care Team Providers Care Transmission Tester Name Role Phone Anand Rowe MD Primary Care Provider Allergies No known active allergies Medications potassium chloride (KLOR-CON) 10 mEq Extended Release tablet Take 10 mEq by mouth daily. 01/25/2022 Active potassium chloride (KLOR-CON) 10 mEq Extended Release tablet Take 10 mEq by mouth daily. 07/25/2022 Active nitroglycerin (NITROSTAT) 0.4 mg Tablet, Sublingual Place 0.4 mg under tongue. 08/02/2022 Active nitroglycerin (NITROSTAT) 0.4 mg Tablet, Sublingual DISSOLVE ONE TABLET UNDER THE TONGUE EVERY 5 MINUTES NEEDED FOR CHEST PAIN. DO NOT EXCEED A TOTAL OF 3 DOSES IN 15 MINUTES 08/02/2022 Active furosemide (LASIX) 20 mg tablet Take 20 mg by mouth daily. 09/24/2021 Active cyclobenzaprine (FLEXERIL) 10 mg tablet Take 10 mg by mouth. 07/30/2021 Active carvediloL (COREG) 3.125 mg tablet Take 3.125 mg by mouth 2 times daily with meals. 08/02/2022 Active aspirin (ECOTRIN EC) 81 mg Tablet, Delayed Release (E.C.) Take 81 mg by mouth daily. 04/05/2021 Active atorvastatin (LIPITOR) 40 mg tablet Take 40 mg by mouth daily. 03/01/2021 Active Active Problems Problem Noted Date Diagnosed Date Lung nodule 08/04/2022 Encounters Date Type Department Care Team Description 01/23/2025 External Device Data ST[facility] ABSTRACTION Provider, Abstract 01/15/2025 External Device Data [facility] ABSTRACTION Provider, Abstract 01/15/2025 External Device Data [facility] ABSTRACTION Provider, Abstract 2025 External Device Data [facility] ABSTRACTION Provider, Abstract 01/11/2025 External Device Data [facility] ABSTRACTION Provider, Abstract 01/08/2025 External Device Data [facility] ABSTRACTION Provider, Abstract 12/26/2024 External Device Data [facility] ABSTRACTION Provider, Abstract 12/25/2024 External Device Data [facility] ABSTRACTION Provider, Abstract from Last 3 Months Social History Tobacco Use Types Packs/Day Years Used Date Smoking Tobacco: Every Day Cigarettes Smokeless Tobacco: Never Tobacco Cessation:Ready to Q uit: Not Asked; Counseling Given: Not Answered Alcohol Use Standard Drinks/Week Comments Not Currently 0 (1 standard drink = 0.6 oz pur e alcohol) Comments Unknown Sex and Gender Information Value Date Recorded Sex Assigned at Not on file Legal Sex Female 11:19 AM CDT Gender Identity Not on file Sexual Orientation Not on file Last Filed Vital Signs Vital Sign Reading Time Taken Comments Blood Pressure 108/63 03/07/2024 2:32 PM CDT Pulse 70 03/07/2024 2:32 PM CDT Temperature 36.2 C (97.1 F) 03/07/2024 2:32 PM CDT Respiratory Rate 14 03/07/2024 2:32 PM CDT Oxygen Saturation 97% 03/07/2024 2:32 PM CDT Inhaled Oxygen Concentration - - Weight 103.9 kg (229 lb) 03/07/2024 2:32 PM CDT Height 152.4 cm (5') 08/04/2022 11:36 AM CDT Body Mass Index 44.72 08/04/2022 11:36 AM CDT Plan of Treatment Upcoming Encounters Date Type Department Care Team (Late st Contact Info) Description 03/14/2025 1:00 PM CDT Office Visit [facility] Oncology and Hematology - [facility] [address] [facility] [address] [place] [address] Al Bender MD [address] [facility] [address] [place] [address] Health Maintenance Due Date Last Done Comments Pre-Diabetes and Diabetes Screening 1960 PNEUMOCOCCAL VACCINE 50+ YEARS (1 of 2 - PCV) 01/11/19 79 BREAST CANCER SCREENING 2000 COLORECTAL SCREENING 01/11/2005 Colorectal Cancer Screening 01/11/2005 FIT-DNA Q 3 years 01/11/2005 FIT/FOBT Q 1 year 01/11/2005 Flex Sig/CT Colonography Q 5 years 01/11/2005 ZOSTER VACCINE (1 of 2) 01/11/2010 RSV VACCINE (60+ or ) (1 - Risk 60-74 years 1-dose series) 2020 INFLUENZA VACCINE (#1) 2024 Medicare Advantage ([place]) Prev entative Visit/Annual Wellness Visit 11/07/2024 08/17/2022 OSTEOPOROSIS SCREENING 01/11/2025 DTAP/TDAP/TD VACCINES (2 - Td or Tdap) 04/02/2031 Insurance Care Teams Transmission Tester Relationship Specialty Start Date End Date Anand Rowe MD [address] [place] [phone] PCP - General Family Practice 03/07/24
--- OUTSIDE RECORDS SUMMARY | 2025-03-07 08:45 | XMS_ITS | Clinical Summary ---
Author Organization [facility] Address [address] [facility] [place] [address] Care Team Providers Care Interlocking And Signal Mechanic Name Role Phone Anand Rowe MD Primary Care Provider [phone] Source Comments [facility],non-owned Affiliates and Associated Physician Practices is amultiple site organization consisting of ambulatory clinics and hospital sitesin [place], [place], [place] and [place]. This disclosure is being madepursuant to the Care Everywhere program and may not contain all information available regarding this patient. Last updated 18.[facility] Allergies No known active allergies Medications * Be aware that medications may not be up to date on this document. Alwaysverify current medications with the patient. losartan (COZAAR) 50 MG tablet Take 50 mg by mouth once daily 0 9 Active SM NICOTINE 14 MG/24HR patch APPLY 1 PATCH TOPICALLY ONCE DAILY FOR 6 WEEKS STOP SMOKING WHEN TREATMENT STARTS 0 9 Active simvastatin (ZOCOR) 20 MG tablet 9 Active albuterol HFA (VENTOLIN HFA) 108 (90 Base) MCG/ACT inhaler 8 Active Social History Tobacco Use Types Packs/Day Years Used Date Smoking Tobacco: Every Day Cigarettes Smokeless Tobacco: Never Alcohol Use Standard Drinks/Week Comments No 0 (1 standard drink = 0.6 oz pur e alcohol) Comments Unknown Sex and Gender Information Value Date Recorded Sex Assigned at Not on file Legal Sex Female 11:34 AM CDT Gender Identity Not on file Sexual Orientation Not on file Last Filed Vital Signs Vital Sign Reading Time Taken Comments Blood Pressure 135/80 06/13/2019 10:09 AM CDT Pulse 64 06/13/2019 10:09 AM CDT Temperature 36.7 C (98 F) 06/13/2019 10:09 AM CDT Respiratory Rate 20 06/13/2019 10:09 AM CDT Oxygen Saturation 97% 06/13/2019 10:09 AM CDT Inhaled Oxygen Concentration - - Weight 102.5 kg (226 lb) 06/13/2019 10:09 AM CDT Height 152.4 cm (5') 06/13/2019 10:09 AM CDT Body Mass Index 44.14 06/13/2019 10:09 AM CDT Plan of Treatment Health Maintenance Due Date Last Done Comments BONE DENSITY TESTING 1960 COLOGUARD (AGES 45-75) - COL ON CA SCREENING 1960 COLON MONITORING 1960 COLONOSCOPY - COLON CA SCREENING [address] CT COLONOGRAPHY - COLON CA SCREENING 1960 Colorectal Cancer Screening 1960 FIT - COLON CA SCREENING 1960 FLEX SIG - COLON CA SCREENING 1960 MAMMOGRAM 1960 PAP SMEAR 1960 HIV SCREENING 01/11/1975 HEPATITIS C SCREENING 01/07/1978 DTAP/TDAP/TD VACCINES (1 - Tdap) 01/11/1979 PNEUMOCOCCAL VACCINE 50+ (1 of 2 - PCV) 01/11/1979 ZOSTER VACCINE (1 of 2) 01/11/2010 SCREENING FOR DIABETES 06/13/2019 Respiratory Syncytial Virus (RSV) Vaccine Pt: or over 60 yrs (1 - Risk 60-74 years 1-dose series) 2020 COVID-19 VACCINE (1 - 2023-2 5 season) 2024 DEPRESSION SCREENING 11/07/2024 INFLUENZA VACCINE (Season Ended) 2025 HEPATITIS B VACCINE Aged Out No longe r eligible based on patient's age to complete this topic HIB VACCINE Aged Out No longer eligi ble based on patient's age to complete this topic HPV VACCINE Aged Out No longer eligi ble based on patient's age to complete this topic MENINGOCOCCAL (Group B) VACC INE SHARED DECISION-MAKING Aged Out No longer eligibl e based on patient's age to complete this topic MENINGOCOCCAL GROUPS A/C/Y/W VACCINE Aged Out No longer eligible b ased on patient's age to complete this topic Insurance [facility] Care Teams Interlocking And Signal Mechanic Relationship Specialty Start Date End Date Anand Rowe MD [address] [place] [id number] PCP - General 05/21/19
--- OUTSIDE RECORDS SUMMARY | 2025-03-07 08:45 | XMS_ITS | Encounter Summary ---
Author Organization [facility] Address [address] [place] [address] Phone Care Team Providers Care Back Tender Paper Machine Name Role Phone Anand Rowe MD Primary Care Provider [phone] Encounter Details Date Type Department Care Team (Latest Contact Info) Description 05/15/2020 Orders Only [facility] Scanning, Provider Social History Tobacco Use Types Packs/Day Years Used Date Smoking Tobacco: Never Assessed Comments Unknown Sex and Gender Information Value Date Recorded Sex Assigned at Not on file 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 Gender Identity Not on file Sexual Orientation Not on file documented as of this encounter Plan of Treatment Upcoming Encounters Date Type Department Care Team (Latest Contact Info) Description 03/13/2025 8:45 AM CDT Hospital Encounter [facility] [address] [place] [phone] Mary Navarro MD [address] [place] [address] Coronary artery disease of little traverse artery of little traverse heart with stable angina pectoris; Chest pain, unspecified type; Abnormal findings on cardiac catheterization 03/13/2025 8:45 AM CDT - 03/13/2025 10:50 AM CDT Surgery [facility] [address] [place] [address] Mary Navarro MD [address] [place] [address] CORONARY FLOW VELOCITY (CFR) / FRACTIONAL FLOW VELOCITY (FFR), 1ST VESSEL (+) [id number] documented as of this encounter Procedures Procedure Name Priority Date/Time Associated Diagnosis Comments CARDIOLOGY DOCUMENT SCAN 05/15/2020 documented in this encounter Results * SCAN - CARDIOLOGY (05/15/2020) Anatomical Region Laterality Modality Other us Provider Scanning CV CARDIAC SERVICES PROCEDURES Final Result documented in this encounter Visit Diagnoses Not on filedocumented in this encounter Additional Health Concerns Infection Onset Date Last Indicated Resolved Time COVID: Suspected 09/12/2024 09/12/2024 09/12/2024 3:33 PM HEARING CONSULTANT documented as of this encounter Care Teams Back Tender Paper Machine Relationship Specialty Start Date End Date Anand Rowe MD PCP - General Emergency Medicine 05/22/20 documented as of this encounter
--- OUTSIDE RECORDS SUMMARY | 2025-03-07 08:45 | XMS_ITS | Encounter Summary ---
Author Organization [facility] Address [address] [facility] [place] [address] Care Team Providers Care Bowling Ball Finisher Name Role Phone Anand Rowe MD Primary Care Provider [phone] Reason for Referral * Consultation (Routine) - Closed Specialty Diagnoses / Procedures Referred By Contac t Referred To Contact Orthopedics Diagnoses Acute left-sided back pain with sciatica Anand Rowe MD [address] [address] Phone: tel: fax: [facility] [address] [place] [address] Phone: tel: fax: Referral ID Status Reason Start Date Expiration Date V isits Requested Visits Authorized [id number] Closed Specialty Services Required 09/06/2024 09/06/2025 1 1 Encounter Details Date Type Department Care Team (Latest Contact Info) Description 09/06/2024 Transcribe Orders [facility] - Centralized Scheduling [address] [place] [address] Anand Rowe MD [address] [address] Acute left-sided back pain with sciatica Social History Tobacco Use Types Packs/Day Years [...] as of this encounter Plan of Treatment Scheduled Referrals Name Type Priority Associated Diagnoses Order Schedule AMB REFERRAL TO ORTHOPEDICS Outpatient Referral Routine Acute left-sided back pain with sciatica 1 Occurrences starting 09/06/2024 until 09/06/2025 documented as of this encounter Visit Diagnoses Diagnosis Acute left-sided back pain with sciatica- Primary documented in this encounter Care Teams Bowling Ball Finisher Relationship Specialty Start Date End Date Anand Rowe MD [address] [place] [address] PCP - General 05/21/19 documented as of this encounter
[2025-03-07 08:57] LABS: Estimated Glomerular Filt Rate > 60
[2025-03-07 09:19] LABS: Basophils Absolute Auto 0.1 K/mm3 (0.0-0.1); Basophils Percent Auto 0.5 % (0.2-1.2); Eosinophils Absolute Auto 0.3 K/mm3 (0-0.3); Eosinophils Percent Auto 3.3 % (0-4.4); Hematocrit 41.6 % (37.0-47.0); Hemoglobin 13.5 g/dL (12.0-15.0); Immature Granulocyte Absolute 0.04 K/mm3 (0.00-0.031); Immature Granulocyte Percent A 0.4 % (0-0.5); Lymphocytes Absolute Auto 2.33 K/mm3 (0.9-3.2); Lymphocytes Percent Auto 25.1 % (18.3-44.2); Mean Corpuscular HGB Conc 32.5 g/dl (32-36); Mean Corpuscular Volume 92.4 fl (80-100); Mean Platelet Volume 9.4 fl (7.4-10.4); Monocytes Absolute Auto 0.8 K/mm3 (0.1-0.6); Monocytes Percent Auto 8.4 % (2.6-8.5); Neutrophils Absolute Auto 5.8 K/mm3 (1.3-6.7); Neutrophils Percent Auto 62.3 % (45.5-73.1); Platelet Count Result 223 k/mm3 (150-375); Red Cell Distribution Width 13.6 % (11.5-14.5); White Blood Count 9.3 K/mm3 (4.5-10.0)
[2025-03-07 09:38] LABS: Alanine Aminotransferase 25 U/L (6-35); Albumin Level 3.4 g/dL (3.5-5.1); Alkaline Phosphatase 127 U/L (38-126); Anion Gap 6 mmol/L (4-12); Aspartate Amino Transferase 27 U/L (14-36); Bilirubin,Total 0.5 mg/dL (0.2-1.3); Blood Urea Nitrogen 12 mg/dL (7-17); Calcium 8.1 mg/dL (8.4-10.2); Carbon Dioxide 28 mmol/L (22-30); Chloride 104 mmol/L (98-107); Estimated Glomerular Filt Rate > 60; Glucose 116 mg/dL (65-110); Sodium 138 mmol/L (137-145)
== END 2025-03-07 08:38 | disposition home or self-care (01) ==
PROVIDERS: PCP Emergency Medicine; Visit Provider Internal Medicine Hematology & Oncology
DX: R91.8 Other nonspecific abnormal finding of lung field (principal); K74.60 Unspecified cirrhosis of liver
CPT/HCPCS: 36415; 71260; 80053; 85025; Q9967

== ENCOUNTER 2025-05-30 14:26 | Outpatient (CLI) | payer MEDICARE, MEDICAID, SELFPAY ==
--- OUTSIDE RECORDS SUMMARY | 2025-05-30 14:29 | XMS_ITS | Encounter Summary ---
Author Organization 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 Gender Identity Not on file Sexual Orientation Not on file documented as of this encounter Plan of Treatment Not on file documented as of this encounter Procedures Procedure Name Priority Date/Time Associated Diagnosis Comments SCAN - LABS 04/07/2021 documented in this encounter Results * SCAN - LABS (04/07/2021) us Provider Scanning Final Result documented in this encounter Visit Diagnoses Not on filedocumented in this encounter Additional Health Concerns Infection Onset Date Last Indicated Resolved Time COVID: Suspected 09/12/2024 09/12/2024 09/12/2024 3:33 PM FLIGHT TEST SHOP MECHANIC documented as of this encounter Care Teams Director Banking Relationship Specialty Start Date End Date Anand Rowe MD PCP - General Emergency Medicine 05/22/20 documented as of this encounter
--- OUTSIDE RECORDS SUMMARY | 2025-05-30 14:29 | XMS_ITS | Encounter Summary ---
Author Organization [facility] Address [address] [place] [address] Phone Care Team Providers Care Kids Activities Coach Name Role Phone Anand Rowe MD Primary Care Provider [phone] Encounter Details Date Type Department Care Team (Latest Contact Info) Description 05/15/2020 Orders Only [facility] Scanning, Provider Social History Tobacco Use Types Packs/Day Years Used Date Smoking Tobacco: Never Assessed Comments Unknown Sex and Gender Information Value Date Recorded Sex Assigned at Not on file Legal Sex Female 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
--- OUTSIDE RECORDS SUMMARY | 2025-05-30 14:29 | XMS_ITS | Encounter Summary ---
Author Organization [facility] Address [address] [place] [address] Care Team Providers Care Foil Spinner Name Role Phone Anand Rowe MD Primary Care Provider [phone] Encounter Details Date Type Department Care Team (Late Contact Info) Description 05/29/2025 Orders Only [facility] [place] On[facility] Hematology [facility] [address] [place] [address] Al Bender MD [facility] [address] [place] [phone] Lung nodules (Primary Dx) Social History Tobacco Use Types Packs/Day Years Used Date Smoking Tobacco: Every Day Cigarettes Smokeless Tobacco: Never Alcohol Use Standard Drinks/Week Comments Not Currently [...] Encounters Date Type Department Care Team (Late Contact Info) Description 05/30/2025 2:45 PM CDT Office Visit [facility] [place] [facility] H[facility]ology - [place] [address] [place] [address] Al Bender MD [facility] [address] [place] [address] Scheduled Orders Name Type Priority Associated Diagnoses Orde r Schedule BASIC METABOLIC PANEL Lab Routine Lung nodules Expected: 05/29/2025, Expires: 05/29/2026 CBC WITH DIFFERENTIAL Lab Routine Lung nodules Expected: 05/29/2025, Expires: 05/29/2026 documented as of this encounter Visit Diagnoses Diagnosis Lung nodules- Primary Other nonspecific abnormal finding of lung field documented in this encounter Care Teams Foil Spinner Relationship Specialty Start Date End Date Anand Rowe MD [address] [place] [phone] PCP - General Family Practice 03/07/24 documented as of this encounter
--- OUTSIDE RECORDS SUMMARY | 2025-05-30 14:29 | XMS_ITS | Clinical Summary ---
Author Organization [facility] Address [address] [place] [address] Care Team Providers Care Butcher'S Assistant Name Role Phone Anand Rowe MD Primary Care Provider [phone] Allergies No known active allergies Medications VENTOLIN [...] Used Date Smoking Tobacco: Every Day Cigarettes 0.8 46.6 Started: 1978 Smokeless Tobacco: Never Alcohol Use [...] patient's age to complete this topic Insurance [employer] Care Teams Butcher'S Assistant Relationship Specialty Start Date End Date Anand Rowe MD [address] [place] [address] PCP - General FAMILY PRACTICE 04/18/19
--- OUTSIDE RECORDS SUMMARY | 2025-05-30 14:29 | XMS_ITS | Encounter Summary ---
Author Organization [facility] Address [address] [place] [address] Care Team Providers Care Letter Of Credit Clerk Name Role Phone Anand Rowe MD Primary Care Provider [phone] Encounter Details Date Type Department Care Team (Late st Contact Info) Description 04/13/2021 Community Orders [facility] EpicCare Link Killian Gonzalez MD [address] [place] [address] Other chest pain (Primary Dx); Other form of dyspnea Social History Tobacco Use Types Packs/Day Years Used Date Smoking Tobacco: Never Assessed Comments Unknown Sex and Gender Information Value Date Recorded Sex Assigned at Not on file Legal Sex Female 5:38 PM CROP SPECIALIST Gender Identity Not on file Sexual Orientation Not on file documented as of this encounter Plan of Treatment Not on file documented as of this encounter Visit Diagnoses Diagnosis Other chest pain- Primary Other form of dyspnea documented in this encounter Orders Case Request Count Last Ordered Date First Orde red Date 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
--- OUTSIDE RECORDS SUMMARY | 2025-05-30 14:30 | XMS_ITS | Encounter Summary ---
Author Organization [facility] Address [address] [place] [address] Care Team Providers Care Clasp Machine Operator Name Role Phone Anand Rowe MD Primary Care Provider [phone] Reason for Referral * Consultation (Routine) - Closed Specialty Diagnoses / Procedures Referred By Contac t Referred To Contact Orthopedics Diagnoses Acute left-sided back pain with sciatica Anand Rowe MD [address] [address] Phone: tel: fax: [facility] [address] [place] [address] Phone: tel: fax: Referral ID Status Reason Start Date Expiration Date V isits Requested Visits Authorized [id number] Closed Specialty Services Required 09/06/2024 09/06/2025 1 1 Encounter Details Date Type Department Care Team (Latest Contact Info) Description 09/06/2024 Transcribe Orders [facility] - Centralized Scheduling [address] [place] [address] Anand Rowe MD [address] [address] Acute left-sided back pain with [...] Primary documented in this encounter Care Teams Clasp Machine Operator Relationship Specialty Start Date End Date Anand Rowe MD [address] [place] [address] PCP - General 05/21/19 documented as of this encounter
--- OUTSIDE RECORDS SUMMARY | 2025-05-30 14:30 | XMS_ITS | Clinical Summary ---
Author Organization [facility] Hiren cutler [facility] Address [address] [facility] [place] [address] Care Team Providers Care Agricultural Scientist Name Role Phone Anand Rowe MD Primary Care Provider [phone] Allergies No known active allergies Medications potassium [...] Encounters Date Type Department Care Team Description 05/29/2025 Orders Only [facility] Oncology and Hematology - [place] [address] [facility] [address] [place] [address] Al Bender MD Lung nodules (Primary Dx) 03/07/2025 Orders Only [facility] Oncology and Hematology [place] [address] [place] [address] Al Bender MD from Last 3 Months Social History Tobacco [...] Care Team (Late st Contact Info) Description 05/30/2025 2:45 PM CDT Office Visit [facility] Oncology and Hematology - [place] [address] [place] [address] Al Bender MD [address] [facility] [address] [place] [address] Health Maintenance Due Date Last Done Comments PNEUMOCOCCAL VACCINE 50+ YEARS (1 of 2 - PCV) 01/11/19 79 BREAST CANCER SCREENING 2000 COLORECTAL SCREENING 01/11/2005 Colorectal Cancer Screening 01/11/2005 FIT-DNA Q 3 years 01/11/2005 FIT/FOBT Q 1 year 01/11/2005 Flex Sig/CT Colonography Q 5 years 01/11/2005 ZOSTER VACCINE (1 of 2) 01/11/2010 Medicare Advantage ([place]) Prev entative Visit/Annual Wellness Visit 11/07/2024 08/17/2022 OSTEOPOROSIS SCREENING 01/11/2025 INFLUENZA VACCINE (#1) 2025 DTAP/TDAP/TD VACCINES (2 - Td or Tdap) 04/02/2031 RSV VACCINE (60+ or ) (1 - 1-dose 75+ series) 01/11/2035 Procedures Procedure Name Priority Date/Time Associated Diagnosis Comments COMPREHENSIVE METABOLIC PANEL Routine 03/07/2025 3:[address] CHEST W CONTRAST Routine 03/07/2025 1 :36 PM CDT from Last 3 Months Results * COMPREHENSIVE METABOLIC PANEL (03/07/2025 3:56 PM CDT) Blood us Al Bender MD CHEMISTRY ORDERABLES Final Resu lt * CT CHEST W CONTRAST (03/07/2025 1:36 PM CDT) Anatomical Region Laterality Modality Chest Computed Tomogra phy us Al Bender MD CT ORDERABLES Final Result from Last 3 Months Insurance Care Teams Agricultural Scientist Relationship Specialty Start Date End Date Anand Rowe MD [address] [place] [phone] PCP - General Family Practice 03/07/24
--- OUTSIDE RECORDS SUMMARY | 2025-05-30 14:30 | XMS_ITS | Referral Summary ---
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 is no laboratory evidence of HCV infection. In most cases, no further action is required. However, if recent HCV exposure is suspected, a test for HCV RNA (test code 60133) is suggested. For additional information please refer to http://education.Learnmetrics/faq/CGQ96w4 (This link is being provided for informational/ educational purposes only.) 09/02/2022 10:5 0 AM CDT 09/02/2022 10:52 AM CDT Kavita Dunn MD LAB MICROBIOLOGY - G ENERAL ORDERABLES Final Result [facility] [address] [place] [address] from Last 3 Months or Most Recently Relevant to Health Maintenance [place] [address] [place] [address] [facility] MEDICARE ADVANTAGE IDPA [facility] MEDICARE ADVANTAGE IDPA [facility] MEDICARE ADVANTAGE Advance Directives For more information, please contact: [phone] * Full Code (Latest Code Status on File) Date Activated Date Inactivated Comments 03/13/2025 11:10 AM 03/13/2025 7:05 PM * Full Code Date Activated Date Inactivated Comments 02/08/2025 7:13 AM 02/09/2025 4:43 AM * Full Code Date Activated Date Inactivated Comments 08/20/2022 8:42 AM 08/21/2022 4:33 AM * Full Code Date Activated Date Inactivated Comments 05/28/2021 3:25 PM 05/28/2021 11:26 PM * Full Code Date Activated Date Inactivated Comments 05/20/2021 6:33 PM 05/21/2021 7:49 PM Care Teams Complaint Coordinator Relationship Specialty Start Date End Date Anand Rowe MD PCP - General Emergency Medicine 05/22/20
--- OUTSIDE RECORDS SUMMARY | 2025-05-30 14:30 | XMS_ITS | Clinical Summary ---
Author Organization [facility] Address [address] [place] [address] Care Team Providers Care Toggler Name Role Phone Anand Rowe MD Primary Care Provider [phone] Source Comments [facility],non-owned Affiliates and Associated Physician Practices is amultiple site organization consisting of ambulatory clinics and hospital sitesin [place], [place] and [place]. This disclosure is being madepursuant to the Care Everywhere program and may not contain all information available regarding this patient. Last updated 18.[facility] Allergies No known active allergies Medications * [...] DENSITY TESTING 1960 COLOGUARD (AGES 45-75) - COLON CA SCREENING 1960 COLON MONITORING 1960 COLONOSCOPY - COLON CA SCREENING [address] CT COLONOGRAPHY - COLON CA SCREENING 1960 Colorectal Cancer Screening 1960 FIT - COLON CA SCREENING 1960 FLEX SIG - COLON CA SCREENING 1960 MAMMOGRAM 1960 HIV SCREENING 01/11/1975 HEPATITIS C SCREENING 01/07/1978 DTAP/TDAP/TD VACCINES (1 - Tdap) 01/11/1979 PNEUMOCOCCAL VACCINE 50+ (1 of 2 - PCV) 01/11/1979 PAP SMEAR 01/11/1981 ZOSTER VACCINE (1 of 2) 01/11/2010 Respiratory Syncytial Virus (RSV) Vaccine Pt: or over 60 yrs (1 - Risk 60-74 years 1-dose series) 2020 SCREENING FOR DIABETES 02/10/2020 7, 02/09/2017, 10/08/2016, Additional history exists COVID-19 VACCINE ( - 2023- season) 2024 DEPRESSION SCREENING 11/07/2024 INFLUENZA VACCINE (#1) 2025 HEPATITIS B VACCINE Aged Out No longe r eligible based on patient's age to complete this topic HIB VACCINE Aged Out No longer eligi ble based on patient's age to complete this topic HPV VACCINE Aged Out No longer eligi ble based on patient's age to complete this topic MENINGOCOCCAL (Group B) VACCINE SHARED DECISION-MAKING Aged Out No longer eligible based on patient's age to complete this topic MENINGOCOCCAL GROUPS A/C/Y/W VACCINE Aged Out No longer eligible based on patient's age to complete this topic [place] Care Teams Toggler Relationship Specialty Start Date End Date Anand Rowe MD [address] [place] [id number] PCP - General 05/21/19
--- OUTSIDE RECORDS SUMMARY | 2025-05-30 14:30 | XMS_ITS | Encounter Summary ---
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
--- OUTSIDE RECORDS SUMMARY | 2025-05-30 14:30 | XMS_ITS | Clinical Summary ---
Author Organization [facility] Address [address] [place] [address] Care Team Providers Care Operations Manager Name Role Phone Anand Rowe MD Primary Care Provider [phone] Allergies Active Allergy Reactions Criticality Noted Date [...] hours as needed for wheezing 1 each 2024 Active ipratropium-albu teroL (DUO-NEB) 0.5-2.5 mg/3 [...] 400 mcg/spray sprayIndications :Coronary artery disease of [place] artery of [place] heart with stable angina pectoris Place 1 [...] (08/02/2022): Added automatically from request for surgery [id number] Abnormal findings on cardiac catheterization Overview (05/22/2021): Added automatically from request for surgery [id number] Traumatic hematoma of wrist, right, initial enco [...] artery disease of n ative artery of [place] heart with stable angina pectoris 05/03/2021 Overview (05/03/2021): Added automatically from request for surgery [id number] Assessment & Plan (05/21/2021 11:33 AM CDT): [...] (05/03/2021): Added automatically from request for surgery [id number] Encounters Date Type Department Care Team Description 03/21/2025 2:00 PM CDT Office Visit [facility] [address] [place] [address] Kimberlee Silva NP Coronary artery disease of [place] artery of [place] heart with stable angina pectoris (Primary Dx); Dyslipidemia; Simple chronic bronchitis (HCC); Tobacco use; Encounter for follow-up in outpatient clinic 03/14/2025 Telephone [facility] [address] [facility] [address] [place] [address] Jordan Rodríguez MD 03/13/2025 8:45 AM CDT - 03/13/2025 10:50 AM CDT Surgery [facility] [address] [place] [address] Mary Navarro MD CORONARY FLOW VELOCITY (CFR) / FRACTIONAL FLOW VELOCITY (FFR), 1ST VESSEL (+) [id number] 03/13/2025 6:11 AM CDT - 03/13/2025 1:40 PM CDT Hospital Encounter [facility] [address] [place] [address] Mary Navarro MD Abnormal stress test [R94.39] (Primary Dx); Coronary artery disease of [place] artery of [place] heart with stable angina pectoris; Chest pain, unspecified type; Abnormal findings on cardiac catheterization Discharge Disposition: Discharge to home or self care from Last 3 Months Surgical History Surgery Date Site/Laterality Comments CARDIAC CATHETERIZATION 08/20/2022 TUBAL LIGATION APPENDECTOMY CHOLECYSTECTOMY CARDIAC CATHETERIZATION 02/08/2025 N/A Procedure: LEFT HEART CATHETERIZATION WITH CORONARY ANGIOGRAPHY AND WITH OR WITHOUT LEFT VENTRICULOGRAM [id number]; Surgeon: Jordan Rodríguez MD; Location: [facility]; Service: Cardiovascular; Laterality: N/A; Dr. Rodríguez requested C due to abnormal Stress Test, hx CAD. Previous Cath:08/[address] Rodríguez Allergies/IV Dye Allergy: Denies Diabetic:No Renal Issues/Dialysis:No Anticoagul CARDIAC STENT PLACEMENT 05/28/2021 JEAN to LAD CARDIAC CATHETERIZATION 03/13/2025 N/A Procedure: CORONARY FLOW VELOCITY (CFR) / FRACTIONAL FLOW VELOCITY (FFR), 1ST VESSEL (+) [id number]; Surgeon: Mary Navarro MD; Location: [facility]; Service: Cardiovascular; Laterality: N/A; LAD Medical devices from this surgery are in the Medical Devices section. 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 Gender Identity Not on file Sexual Orientation [...] 03/21/2025 1:38 PM CDT Plan of Treatment Health Maintenance Due Date Last Done Comments Breast Cancer Screening-Mammogram 1960 Cervical Cancer Screening 1960 Colon Cancer Screening-Colonoscopy 1960 Depression Screening 1960 Osteoporosis Screening-Bone Density Scan 1960 Pneumococcal vaccine 65+ (1 of 2 - PCV) 01/11/1979 Lung Cancer Screening 01/11/2010 Zoster Vaccine (1 of 2) 01/11/2010 Well Visit 65+ 01/11/2025 Influenza Vaccine (#1) 2025 Fall Risk Assessment 03/13/2026 03/13/2025 DTaP/Tdap/Td Vaccine (3 - Td or Tdap) 04/02/2031, 05/22/2019 Hepatitis B Screening Completed 09/02/2022 Hepatitis C Screening Completed 09/02/2022 Medical Devices Implanted Type Area Automatic Screwmaker Device Identifier Shelf Expiration Date Model / Serial / Lot [employer] [id number] Synergy 3mm 28mm 144cm Radiopaque 1 Access Port Inflation Lumen - [id number] Implanted:Qty: 1 on 05/28/2021 by Charlie Ambrocio MD PhD at [facility] Stent [employer] 01/08/2023 [id number] / / [id number] [employer] [id number] Angio-Seal Evolution 6fr .035in Guidewire Bypass Tube Suture - [id number] Implanted:Qty: 1 on 05/28/2021 by Charlie Ambrocio MD PhD at [facility] Stent [employer] Victoria 01/04/2022 [id number] / / [id number] Medtronic Card Vasc Surgery 2.75 X 22mm [place] [employer] Coronary Stent [id number] - [id number] - [id number] Implanted:Qty: 1 on 03/13/2025 by Mary Navarro MD at [facility] Stent N/A: Anterior Descending Cornary Artery Medtronic Card Vasc Surgery 05/27/2027 [id number] / [id number] / [id number] Procedures Procedure Name Priority Date/Time Associated Diagnosis Comments EGFR Routine 03/13/2025 12:05 PM CDT DIFFERENTIAL AUTO Routine 03/13/2025 12: 05 PM CDT CBC WITH AUTO DIFFERENTIAL Routine 03/13/2025 12:05 PM CDT BASIC METABOLIC PANEL Routine 03/13/2025 12:05 PM CDT CFR I FFR, 1ST VESSEL Routine 03/13/2025 9:54 AM CDT Coronary artery disease of [place] artery of [place] heart with stable angina pectoris Chest pain, [...] 5 PM CDT 03/13/2025 12:21 PM CDT us Mary Navarro MD LAB BLOOD ORDERABLES Final Re sult [facility] Department [place] [address] * Differential, auto (03/13/2025 12:05 PM CDT) Neutrophil abs 5.31 1.50 - 6.50 K/cumm Imm gran abs 0.05 0.00 - 0.10 K/cumm [facility] Lymphocyte abs 1.85 0.80 - 3.30 K/cumm [facility] Monocyte abs 0.42 0.20 - 0.80 K/cumm [facility] Eosinophil abs 0.19 0.00 - 0.50 K/cumm [facility] Basophil abs 0.04 0.00 - 0.10 K/cumm [facility] Neutrophil pct 67.7 % [facility] Comment: Interpretive Data Percent cell count reference ranges are not reported, since discordance with absolute values may lead to misinterpretation of CBC data. Current Interpretive Data was last revised on 2018. Imm gran pct 0.6 % [facility] Comment: Interpretive Data Percent cell count reference ranges are not reported, since discordance with absolute values may lead to misinterpretation of CBC data. Current Interpretive Data was last revised on 2018. Lymphocyte pct 23.5 % [facility] Comment: Interpretive Data Percent cell count reference ranges are not reported, since discordance with absolute values may lead to misinterpretation of CBC data. Current Interpretive Data was last revised on 2018. Monocyte pct 5.3 % [facility] Comment: Interpretive Data Percent cell count reference ranges are not reported, since discordance with absolute values may lead to misinterpretation of CBC data. Current Interpretive Data was last revised on 2018. Eosinophil pct 2.4 % [facility] Comment: Interpretive Data Percent cell count reference ranges are not reported, since discordance with absolute values may lead to misinterpretation of CBC data. Current Interpretive Data was last revised on 2018. Basophil pct 0.5 % [facility] Comment: Interpretive Data Percent cell count reference ranges are not reported, since discordance with absolute values may lead to misinterpretation of CBC data. Current Interpretive Data was last revised on 2018. Blood 03/13/2025 12:0 5 PM CDT 03/13/2025 12:15 PM CDT Mary Navarro MD LAB BLOOD ORDERABLES Final Re sult Performing Organization Address [facility]/ZIP Co de Phone Number [facility] Department [place] [address] * CBC with auto differential (03/13/2025 12:05 PM CDT) WBC 7.86 3.80 - 9.90 K/cumm Hgb 12.2 11.9 - 15.5 g/dL [facility] Hct 36.4 35.6 - 45.5 % [facility] Plt 210 150 - 400 K/cumm [facility] MPV 10.2 9.1 - 12.3 fL [facility] RBC 4.02 3.90 - 5.20 M/cumm [facility] MCV 90.5 81.3 - 96.4 fL [facility] MCH 30.3 27.1 - 33.3 pg [facility] MCHC 33.5 32.3 - 35.7 g/dL [facility] RDW CV 13.5 11.1 - 14.9 % [facility] RDW SD 44.2 35.7 - 48.1 fL [facility] NRBC abs 0.00 0.00 - 0.01 K/cumm [facility] Blood 03/13/2025 12:0 5 PM CDT 03/13/2025 12:15 PM CDT Mary Navarro MD LAB BLOOD ORDERABLES Final Re sult Performing Organization Address City/[facility]/ZIP Co de Phone Number [facility] Department [place] [address] * (ABNORMAL) Basic metabolic panel (03/13/2025 12:05 PM CDT) Sodium 137 135 - 145 mmol/L Potassium, pl 3.9 3.3 - 4.9 mmol/L [facility] Chloride 104 97 - 110 mmol/L [facility] CO2 28 22 - 32 mmol/L [facility] Anion gap 5 2 - 15 mmol/L [facility] BUN 12 6 - 25 mg/dL [facility] Creatinine 0.74 0.60 - 1.10 mg/dL [facility] Glucose 195 70 - 199 mg/dL [facility] Comment: Interpretive Data Fasting glucose >/= 126 [...] 2022. Calcium 8.3(L) 8.5 - 10.3 mg/dL [facility] Blood 03/13/2025 12:0 5 PM CDT 03/13/2025 12:15 PM CDT us Mary Navarro MD LAB BLOOD ORDERABLES Final Re sult [facility] Department [place] [address] * CFR I FFR, 1ST VESSEL (03/13/2025 [...] result were not included. Cardiovascular Procedure Center [facility] [address], [address] [place] [phone] CORONARY ANGIOGRAM AND PERCUTANEOUS CORONARY INTERVENTION REPORT Patient: Skip Mari : 1960 MR number: [id number] Date of Service: 03/13/2025 C Programmer: Mary Navarro MD Fellow: Ben Navarro MD [...] obtained. The patient was brought to the cath laboratory technician and placed on the table. Bilateral groins [...] There was a mild step-down in the [place] vessel right after the distal aspect of the stent but there was no significant finding on IVUS examination of this portion. COMPLICATIONS: None. DIAGNOSTIC Jordan Rodríguez MD CV CARDIAC CATH PROCEDURES Fin al Result * (ABNORMAL) POCT Activated clotting time, low range (03/13/2025 9:53 AM CDT) ACT 258(H) 123 - 168 sec POC Performer [id number] [facility] POC Device Number [id number] [facility] Blood 03/13/2025 9:53 AM CDT 03/13/2025 9:53 AM CDT Mary Navarro MD LAB POCT ORDERABLES - DEVICE Final Result [facility] Department [place] [address] * (ABNORMAL) POCT Activated clotting time, low range (03/13/2025 9:17 AM CDT) ACT >400(H) 123 - 168 sec POC Performer [id number] [facility] POC Device Number [id number] [facility] Blood 03/13/2025 9:17 AM CDT 03/13/2025 9:17 AM CDT Mary Navarro MD LAB POCT ORDERABLES - DEVICE Final Result Performing Organization Address [facility] Co de Phone Number [facility] Department [place] [address] * CBC without differential (03/13/2025 9:17 AM CDT) WBC 8.90 3.80 - 9.90 K/cumm Hgb 12.9 11.9 - 15.5 g/dL [facility] Hct 38.1 35.6 - 45.5 % [facility] Plt 240 150 - 400 K/cumm [facility] MPV 10.4 9.1 - 12.3 fL [facility] RBC 4.29 3.90 - 5.20 M/cumm [facility] MCV 88.8 81.3 - 96.4 fL [facility] MCH 30.1 27.1 - 33.3 pg [facility] MCHC 33.9 32.3 - 35.7 g/dL [facility] RDW CV 13.5 11.1 - 14.9 % [facility] RDW SD 44.3 35.7 - 48.1 fL [facility] NRBC abs 0.00 0.00 - 0.01 K/cumm [facility] Blood 03/13/2025 9:17 AM CDT 03/13/2025 9:17 AM CDT Narrative [facility] - 03/13/2025 9:42 AM CDT To be drawn after hydration bolus complete Mary Navarro MD LAB BLOOD ORDERABLES Final Re sult Performing Organization Address City/[facility]/ZIP Co de Phone Number [facility] [place] [address] * Type and screen (03/13/2025 6:47 AM CDT) Michele, indirect Negative ABO Rh A Positive [facility] Blood 03/13/2025 6:47 AM CDT 03/13/2025 7:22 AM CDT Mary Navarro MD LAB BLOOD BANK TEST ORDERABLE S Final Result Performing Organization Address [facility] de Phone Number [facility] [place] [address] * eGFR (03/13/2025 6:14 AM CDT) eGFR [...] 6:14 AM CDT 03/13/2025 6:50 AM CDT us Mary Navarro MD LAB BLOOD ORDERABLES Final Re sult Performing Organization Address [facility] Co de Phone Number [facility] Department [place] [address] * (ABNORMAL) CBC without differential (03/13/2025 6:14 AM CDT) WBC 10.05(H) 3.80 - 9.90 K/cumm Hgb 13.5 11.9 - 15.5 g/dL [facility] Hct 40.9 35.6 - 45.5 % [facility] Plt 280 150 - 400 K/cumm [facility] MPV 10.5 9.1 - 12.3 fL [facility] RBC 4.56 3.90 - 5.20 M/cumm [facility] MCV 89.7 81.3 - 96.4 fL [facility] MCH 29.6 27.1 - 33.3 pg [facility] MCHC 33.0 32.3 - 35.7 g/dL [facility] RDW CV 13.5 11.1 - 14.9 % [facility] RDW SD 44.7 35.7 - 48.1 fL [facility] NRBC abs 0.00 0.00 - 0.01 K/cumm [facility] Blood 03/13/2025 6:14 AM CDT 03/13/2025 6:50 AM CDT Mary Navarro MD LAB BLOOD ORDERABLES Final Re sult [facility] Department [place] [address] * Basic metabolic panel (03/13/2025 6:14 AM CDT) Sodium 138 135 - 145 mmol/L Potassium, pl 3.7 3.3 - 4.9 mmol/L [facility] Chloride 101 97 - 110 mmol/L [facility] CO2 30 22 - 32 mmol/L [facility] Anion gap 7 2 - 15 mmol/L [facility] BUN 13 6 - 25 mg/dL [facility] Creatinine 0.78 0.60 - 1.10 mg/dL [facility] Glucose 138 70 - 199 mg/dL [facility] Comment: Interpretive Data Fasting glucose >/= 126 [...] 2022. Calcium 8.7 8.5 - 10.3 mg/dL [facility] Blood 03/13/2025 6:14 AM CDT 03/13/2025 6:50 AM CDT Mary Navarro MD LAB BLOOD ORDERABLES Final Re sult [facility] Department [place] [address] * ECG 12 lead (03/13/2025 6:07 AM CDT) Pathologist [facility] Ventricular Rate EKG/Min 71 BPM [facility] Atrial Rate 71 BPM [facility] IA-Interval (MSEC) 176 ms [facility] QRS-Interval (MSEC) 90 ms [facility] QT-Interval (MSEC) 432 ms [facility] QTc 469 ms [facility] P [place] 59 degrees [facility] R [place] 17 degrees [facility] T [place] 62 degrees [facility] Diagnosis Normal sinus rhythm Low voltage QRS Borderline ECG When compared with ECG of 12-SEP-2024 13:54, PREVIOUS ECG IS PRESENT Confirmed by Cyndi Sanches MD ([id number]) on 03/13/2025 10:46:19 PM [facility] 03/13/2025 6:07 AM CDT 03/13/2025 10:46 PM CDT Mary Navarro MD ECG ORDERABLES Final Result Performing Organization Address City/[facility]/ZIP Co de Phone Number [facility] * Hepatitis C antibody (09/02/2022 10:50 AM CDT) Hep C Ab NON-REACTI VE NON-REACT CARLIN [facility] SIGNAL TO CUT-OFF 0.02 <1.00 [facility] Comment: HCV antibody was non-reactive. There is no laboratory evidence of HCV infection. In most cases, no further action is required. However, if recent HCV exposure is suspected, a test for HCV RNA (test code 89640) is suggested. For additional information please refer to http://education.[employer]/faq/WYW03a3 (This link is being provided for informational/ educational purposes only.) 09/02/2022 10:5 0 AM CDT 09/02/2022 10:52 AM CDT Kavita Dunn MD LAB MICROBIOLOGY - G ENERAL ORDERABLES Final Result [facility] [address] [place] [address] from Last 3 Months or Most Recently Relevant to Health Maintenance Insurance [facility] MEDICARE ADVANTAGE IDPA [facility] MEDICARE ADVANTAGE IDPA [facility] MEDICARE ADVANTAGE Advance Directives For more information, please contact: [phone] * Full Code (Latest Code Status on [...] 6:33 PM 05/21/2021 7:49 PM Care Teams Operations Manager Relationship Specialty Start Date End Date Anand Rowe MD PCP - General Emergency Medicine 05/22/20
[2025-05-30 14:39] LABS: Hematocrit 40.7 % (37.0-47.0); Hemoglobin 13.6 g/dL (12.0-15.0); Immature Granulocyte Percent A 0.4 % (0-0.5); Lymphocytes Absolute Auto 2.49 K/mm3 (0.9-3.2); Mean Corpuscular HGB Conc 33.4 g/dl (32-36); Mean Corpuscular Hemoglobin 31.1 pg (26-34); Mean Corpuscular Volume 92.9 fl (80-100); Nucleated Red Blood Cells Absolute Auto 0.000 K/mm3 (0.0-0.012); Nucleated Red Blood Cells Perc 0.0 % (0.0-0.2); Platelet Count Result 264 k/mm3 (150-375); Red Blood Count 4.38 M/mm3 (4.2-5.4); White Blood Count 10.0 K/mm3 (4.5-10.0)
[2025-05-30 14:43] LABS: Blood Urea Nitrogen 11 mg/dL (8-26); Carbon Dioxide 27 mmol/L (22-30); Chloride 101 mmol/L (98-109); Estimated Glomerular Filt Rate 56; Glucose 142 mg/dL (70-105); Ionized Calcium (POC) 1.15 mmol/L (1.11-1.31); Potassium 4.0 mmol/L (3.5-4.9); Sodium 139 mmol/L (138-146)
== END 2025-05-30 14:27 | disposition home or self-care (01) ==
LOC: ANHLAB 14:27
PROVIDERS: PCP Emergency Medicine; Visit Provider Internal Medicine Hematology & Oncology
DX: R91.8 Other nonspecific abnormal finding of lung field (principal)
CPT/HCPCS: 36415; 80047; 85025

== ENCOUNTER 2025-07-25 14:27 | Outpatient (CLI) | payer MEDICARE, MEDICAID, SELFPAY ==
--- OUTSIDE RECORDS SUMMARY | 2025-07-25 14:35 | XMS_ITS | Encounter Summary ---
Author Organization [facility] Address [address] [place] [address] Care Team Providers Care Automatic Toe Laster Name Role Phone Anand Rowe MD Primary Care Provider [phone] Reason for Referral * Consultation (Routine) - Closed Specialty Diagnoses / Procedures Referred By Contac t Referred To Contact Orthopedics Diagnoses Acute left-sided back pain with sciatica Anand Rowe MD [address] [address] Phone: tel: fax: [facility] [address] [place] [address] Phone: tel: fax: Referral ID Status Reason Start Date Expiration Date V isits Requested Visits Authorized [id number] Closed Specialty Services Required 09/06/2024 09/06/2025 1 1 Encounter Details Date Type Department Care Team (Latest Contact Info) Description 09/06/2024 Transcribe Orders [facility] - Centralized Scheduling [address] [place] [address] Anand Rowe MD [address] [address] Acute left-sided back pain with [...] Primary documented in this encounter Care Teams Automatic Toe Laster Relationship Specialty Start Date End Date Anand Rowe MD [address] [place] [id number] PCP - General 05/21/19 documented as of this encounter
--- OUTSIDE RECORDS SUMMARY | 2025-07-25 14:35 | XMS_ITS | Clinical Summary ---
Author Organization [facility] Address [address] [place] [address] Care Team Providers Care Metal Machinist Name Role Phone Anand Rowe MD Primary Care Provider [phone] Allergies Active Allergy Reactions Criticality Noted Date [...] daily 90 tablet 3 025 2025 Active ranolazine ER (RANEXA) 500 mg 12 [...] by mouth daily 30 tablet 2 Active losartan (COZAAR) 50 mg tablet TAKE 1 TABLET BY MOUTH DAILY 90 tablet 3 Active atorvastatin (LIPITOR) 40 mg tablet TAKE 1 TABLET BY MOUTH DAILY 90 tablet 3 Active nitroglycerin 400 mcg/spray sprayIndications :Coronary artery disease of [place] artery of [place] heart with stable angina pectoris PLACE 1 SPRAY UNDER THE TONGUE EVERY 5 (FIVE) MINUTES NEEDED FOR CHEST PAIN 12 g 1 025 Active nitroglycerin (NITROSTAT) 0.[address] 1 tablet (0.4 mg total) under the tongue every 5 (five) minutes as needed for chest pain 25 tablet 3 025 2024 Discontinued(T herapy completed) nitroglycerin 400 mcg/spray sprayIndications :Coronary artery disease of [place] artery of [place] heart with stable angina pectoris Place 1 spray under the tongue every 5 (five) minutes as needed for chest pain 1 g 3 025 2024 Discontinued Active Problems Problem Noted Date Diagnosed Date Simple chronic bronchitis 03/21/2025 Tobacco use 03/21/2025 Encounter for follow-up in outpatient clinic Abnormal stress test 01/14/2025 Trigger finger of right thumb 03/26/2024 Abnormal stress echo 08/02/2022 Overview (08/02/2022): Added automatically from request for surgery [id number] Abnormal findings on cardiac catheterization Overview (05/22/2021): Added automatically from request for surgery [id number] Traumatic hematoma of wrist, right, initial enco [...] artery disease of n ative artery of [place] heart with stable angina pectoris 05/03/2021 Overview (05/03/2021): Added automatically from request for surgery [id number] Assessment & Plan (05/21/2021 11:33 AM CDT): [...] (05/03/2021): Added automatically from request for surgery [id number] Encounters Date Type Department Care Team Description 06/09/2025 Results Follow-Up [facility] Medicine Gastroenterology [address] [facility] 2nd Floor [address] [place] [address] Kavita Dunn MD MRI Abdomen Liver W WO Contrast 06/07/2025 9:42 AM CDT - 06/07/2025 11:59 PM CDT Hospital Encounter [facility] [address] [place] [address] Other cirrhosis of liver (HCC); Hepatic steatosis Discharge Disposition: Discharge to home or self care from Last 3 Months Surgical History Surgery Date Site/Laterality Comments CARDIAC CATHETERIZATION 08/20/2022 TUBAL LIGATION APPENDECTOMY CHOLECYSTECTOMY CARDIAC CATHETERIZATION 02/08/2025 N/A Procedure: LEFT HEART CATHETERIZATION WITH CORONARY ANGIOGRAPHY AND WITH OR WITHOUT LEFT VENTRICULOGRAM [id number]; Surgeon: Jordan Rodríguez MD; Location: [facility] CARDIAC COMMERCIAL PROPERTY MANAGER; Service: Cardiovascular; Laterality: N/A; Dr. Rodríguez requested LHC due to abnormal Stress Test, hx CAD. Previous Cath:08/[address] 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 Gender Identity Not on file Sexual Orientation [...] - - Weight 103 kg (227 lb) 06/07/2025 9:41 AM CDT Height 152.4 cm (5') 06/07/2025 9:41 AM CDT Body Mass Index 44.33 06/07/2025 9:41 AM CDT Plan of Treatment Health Maintenance [...] Tdap) 04/02/2031, 05/22/2019 Hepatitis B Screening Completed Hepatitis C Screening Completed 09/02/2022 Medical Devices Implanted Type Area Workers Compensation Examiner Device Identifier Shelf Expiration Date Model / Serial / Lot [employer] [place] [id number] Synergy 3mm 28mm 144cm Radiopaque 1 Access Port Inflation Lumen - [id number] Implanted:Qty: 1 on 05/28/2021 by Charlie Ambrocio MD PhD at [facility] [employer] 01/08/2023 [id number] / / [id number] [employer]ig [employer] [id number] Angio-Seal Evolution 6fr .035in Guidewire Bypass Tube Suture - [id number] Implanted:Qty: 1 on 05/28/2021 by Charlie Ambrocio MD PhD at [facility]ent [employer] 01/04/2022 [id number] / / [id number] Medtronic Card Vasc Surgery 2.75 X 22mm Javi Garvin Rx Coronary Stent [id number] - [id number] - [id number] Implanted:Qty: 1 on 03/13/2025 by Mary Navarro MD at [facility] Stent N/A: Anterior Descending Cornary Artery Medtronic Card Vasc Surgery 05/27/2027 [id number] / [id number] / [id number] Procedures Procedure Name Priority Date/Time Associated Diagnosis Comments MRI ABDOMEN LIVER W WO CONTRAST Schedule Routine, Read Routine (OP Routine) 06/07/2025 10:40 AM CDT Other cirrhosis of liver (HCC) Hepatic steatosis HEPATITIS C ANTIBODY Routine 09/02/2022 10:50 AM CDT from Last 3 Months or Most Recently Relevant to Health Maintenance Results * MRI Abdomen Liver W WO Contrast (06/07/2025 10:40 AM CDT) Anatomical Region Laterality Modality Body N/A Magnetic Resonan ce 06/07/2025 12:1 0 PM CDT Impressions 06/07/2025 1:45 PM CDT 1. Stigmata of cirrhosis. 2. Interval decrease in the conspicuity of a previously seen area of arterial hyperenhancement within hepatic segment 5/6. This a 3. jamel may represent postbiopsy changes, given the persistence of a linear area of enhancement within the overlying right flank soft tissues. Recommend attention on follow-up imaging. Dictated by: Jayden Vanessa MD PHD The radiology attending physician has personally reviewed this study, and had reviewed and/or edited this written report and agrees with it. Electronically signed by: Joselin Dietrich M.D. Narrative 06/07/2025 1:45 PM CDT EXAMINATION: MAGNETIC RESONANCE IMAGING OF THE ABDOMEN WITH AND WITHOUT CONTRAST HISTORY: 65-year-old with cirrhosis, suspected hepatic lesion. TECHNIQUE: Magnetic resonance imaging of the abdomen was performed prior to and following the uneventful administration of intravenous contrast. Protocol: Liver Contrast: Dotarem (gadoterate) 20 mL COMPARISON: MRI dated 12/13/2024. FINDINGS: Liver: Stigmata of portal hypertension and cirrhosis, as evidenced by periportal widening, atrophy of the right posterior section, surface nodularity and recanalization of the umbilical vein. No abnormal fat or iron deposition. - Bile ducts: Normal. - Focal liver lesions: No new focal hepatic lesion. Interval decrease in the conspicuity of a previously seen focus of arterial enhancement within segment 5/6 (series 13, image 33/88), without associated T2 abnormality or diffusion restriction. Overlying this region is a redemonstrated area of linear arterial phase hyperenhancement measuring 2.2 x 1.0 cm (series 13, image 40/88) at the level of the 11th rib. - Vasculature: Conventional hepatic arterial anatomy. Main portal vein, splenic vein, superior mesenteric vein are patent. Hepatic veins are patent. Gallbladder: Surgically absent. Pancreas: Normal. Spleen: Normal. Adrenals: Normal. Kidneys: Normal, without hydronephrosis. Other Findings: Heart is normal without pericardial effusion. No pleural effusion, pulmonary consolidation, or pneumothorax. No evidence of bowel obstruction. No suspicious osseous lesion. Procedure Note Joselin Dietrich MD - 06/07/2025 EXAMINATION: MAGNETIC RESONANCE IMAGING OF THE ABDOMEN WITH AND WITHOUT CONTRAST HISTORY: 65-year-old with cirrhosis, suspected hepatic lesion. TECHNIQUE: Magnetic resonance imaging of the abdomen was performed prior to and following the uneventful administration of intravenous contrast. Protocol: Liver Contrast: Dotarem (gadoterate) 20 mL COMPARISON: MRI dated 12/13/2024. FINDINGS: Liver: Stigmata of portal hypertension and cirrhosis, as evidenced by periportal widening, atrophy of the right posterior section, surface nodularity and recanalization of the umbilical vein. No abnormal fat or iron deposition. - Bile ducts: Normal. - Focal liver lesions: No new focal hepatic lesion. Interval decrease in the conspicuity of a previously seen focus of arterial enhancement within segment 5/6 (series 13, image 33/88), without associated T2 abnormality or diffusion restriction. Overlying this region is a redemonstrated area of linear arterial phase hyperenhancement measuring 2.2 x 1.0 cm (series 13, image 40/88) at the level of the 11th rib. - Vasculature: Conventional hepatic arterial anatomy. Main portal vein, splenic vein, superior mesenteric vein are patent. Hepatic veins are patent. Gallbladder: Surgically absent. Pancreas: Normal. Spleen: Normal. Adrenals: Normal. Kidneys: Normal, without hydronephrosis. Other Findings: Heart is normal without pericardial effusion. No pleural effusion, pulmonary consolidation, or pneumothorax. No evidence of bowel obstruction. No suspicious osseous lesion. IMPRESSION: 1. Stigmata of cirrhosis. 2. Interval decrease in the conspicuity of a previously seen area of arterial hyperenhancement within hepatic segment 5/6. This a 3. jamel may represent postbiopsy changes, given the persistence of a linear area of enhancement within the overlying right flank soft tissues. Recommend attention on follow-up imaging. Dictated by: Jayden Vanessa MD PHD The radiology attending physician has personally reviewed this study, and had reviewed and/or edited this written report and agrees with it. Electronically signed by: Joselin Dietrich M.D. Kavita Dunn MD IMG MRI PROCEDURES [...] a test for HCV RNA (test code 01850) is suggested. For additional information please refer to http://education.[employer]/faq/FTG09s7 (This link is being provided for informational/ educational purposes only.) 09/02/2022 10:5 0 AM CDT 09/02/2022 10:52 AM CDT Kavita Dunn MD LAB MICROBIOLOGY - G ENERAL ORDERABLES Final Result [employer] [address] [id number] from Last 3 Months or Most Recently Relevant to Health Maintenance Insurance [employer] [facility] MEDICARE ADVANTAGE [facility]IC[facility] Address: [facility] [address] [place] [address] [employer] [facility] MEDICARE ADVANTAGE [facility] MEDICARE Address: [address] [address] [place] [address] [employer]PA [facility] MEDICARE ADVANTAGE [facility] MEDIC[facility] Address: [address] [address] [place] [address] Advance Directives For more information, please contact: [phone] * Full Code (Latest Code Status on [...] 6:33 PM 05/21/2021 7:49 PM Care Teams Metal Machinist Relationship Specialty Start Date End Date Anand Rowe MD PCP - General Emergency Medicine 05/22/20
--- OUTSIDE RECORDS SUMMARY | 2025-07-25 14:35 | XMS_ITS | Clinical Summary ---
Author Organization [facility] Address [address] [place] [address] Care Team Providers Care Wood Crafter Name Role Phone Anand Rowe MD Primary Care Provider [phone] Allergies No known active allergies Medications VENTOLIN [...] Date Smoking Tobacco: Every Day Cigarettes 0.7 46.7 Started: 1978 Smokeless Tobacco: Never Alcohol Use [...] 2000 Zoster Vaccines (1 of 2) 01/11/2010 Dexa Scan (General) 01/11/2025 COVID-19 Vaccine (1 - 2023-2 5 season) 2025 DTaP, Tdap and Td Vaccines ( 2 [...] patient's age to complete this topic Insurance [place] Care Teams Wood Crafter Relationship Specialty Start Date End Date Anand Rowe MD [address] [place] [id number] PCP - General FAMILY PRACTICE 04/18/19
--- OUTSIDE RECORDS SUMMARY | 2025-07-25 14:35 | XMS_ITS | Encounter Summary ---
Author Organization [facility] Address [address] [place] [address] Phone Care Team Providers Care Line Supply Name Role Phone Anand Rowe MD Primary Care Provider [phone] Encounter Details Date Type Department Care Team (Late st Contact Info) Description 06/09/2025 Results Follow-Up [facility] Gastroenterology [address] [facility] 2nd Floor [address] [place] [address] Kavita Dunn MD [address] [place] [address] MRI Abdomen Liver W WO Contrast Social History Tobacco Use Types Packs/Day Years [...] on file Legal Sex Female 5:38 PM 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
--- OUTSIDE RECORDS SUMMARY | 2025-07-25 14:35 | XMS_ITS | Encounter Summary ---
Author Organization [facility] Address [address] [place] [address] Care Team Providers Care Operations Support Coordinator Name Role Phone Anand Rowe MD Primary Care Provider [phone] Encounter Details Date Type Department Care Team (Late st Contact Info) Description 07/23/2025 External Device Data [facility] ABSTRACTION Provider, Abstract NO ADDRESS ON FILE Social History Tobacco Use Types Packs/Day Years [...] Care Team (Late st Contact Info) Description 06/09/2026 10:00 AM CDT Office Visit [facility] Oncology and Hematology - [place] [address] [place] [address] [address] [place] [address] Al Bender MD [address] [facility] [address] [place] [address] documented as of this encounter Visit Diagnoses Not on filedocumented in this encounter Care Teams Operations Support Coordinator Relationship Specialty Start Date End Date Anand Rowe MD [address] [place] [address] [address] [place] [address] PCP - General Family Practice 03/07/24 documented as of this encounter
--- OUTSIDE RECORDS SUMMARY | 2025-07-25 14:35 | XMS_ITS | Encounter Summary ---
Author Organization [facility] Address [address] [place] [address] Phone Care Team Providers Care Inseam Trimmer Name Role Phone Anand Rowe MD Primary Care Provider [phone] Encounter Details Date Type Department Care Team (Late st Contact Info) Description 09/02/2022 Orders Only 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
--- OUTSIDE RECORDS SUMMARY | 2025-07-25 14:35 | XMS_ITS | Encounter Summary ---
Author Organization [facility] Address [address] [place] [address] Phone Care Team Providers Care Die Out Worker Name Role Phone Anand Rowe MD Primary Care Provider [phone] Encounter Details Date Type Department Care Team (Latest Contact Info) Description 05/15/2020 Orders Only [facility] Scanning, Provider Social History Tobacco Use Types Packs/Day Years Used Date Smoking Tobacco: Never Assessed Comments Unknown Sex and Gender Information Value Date Recorded Sex Assigned at Not on file Legal Sex Female 5:38 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
--- OUTSIDE RECORDS SUMMARY | 2025-07-25 14:35 | XMS_ITS | Clinical Summary ---
Author Organization [facility] Address [address] [place] [address] [place] [address] Care Team Providers Care Muffler Installer Name Role Phone Anand Rowe MD Primary Care Provider [phone] Allergies No known active allergies Medications potassium [...] 40 mg by mouth daily. 03/01/2021 Active amLODIPine (NORVASC) 5 mg tablet Take 5 mg by mouth daily. 02/08/2025 02/09/20 Active Active Problems Problem Noted Date Diagnosed Date Lung nodule 08/04/2022 Encounters Date Type Department Care Team Description 07/23/2025 External Device Data STL ABSTRACTION Provider, Abstract 07/09/2025 External Device Data STL ABSTRACTION Provider, Abstract 06/11/2025 External Device Data STL ABSTRACTION Provider, Abstract 05/31/2025 Orders Only [facility] Oncology and Hematology - Robert [address] [place] [address] Al Bender MD 05/30/2025 2:45 PM CDT Office Visit [facility] Oncology and Hematology - [place] [address] [place] [address] Al Bender MD Lung nodules (Primary Dx) 05/29/2025 Orders Only [facility] Oncology and Hematology - Robert [address] [place] [address] Al Bender MD Lung nodules (Primary Dx) from Last 3 Months Social History Tobacco [...] Sign Reading Time Taken Comments Blood Pressure 119/62 05/30/2025 2:52 PM CDT Pulse 68 05/30/2025 2:52 PM CDT Temperature 36.2 C (97.1 F) 05/30/2025 2:52 PM CDT Respiratory Rate 16 05/30/2025 2:52 PM CDT Oxygen Saturation 97% 05/30/2025 2:52 PM CDT Inhaled Oxygen Concentration - - Weight 103.1 kg (227 lb 6.4 oz) 05/30/2025 2:52 PM CDT Height 152.4 cm (5') 08/04/2022 11:36 AM CDT Body Mass Index 44.41 08/04/2022 11:36 AM CDT Plan of Treatment Upcoming Encounters Date Type Department Care Team (Late st Contact Info) Description 06/09/2026 10:00 AM CDT Office Visit [facility] Oncology and Hematology - [place] [address] [place] [address] Al Bender MD [address] [facility] [address] [place] [address] Health Maintenance Due Date Last [...] - Risk 60-74 years 1-dose series) 2020 OSTEOPOROSIS SCREENING 01/11/2025 INFLUENZA VACCINE (#1) 2025 DTAP/TDAP/TD VACCINES (2 - Td or Tdap) 04/02/2031 Procedures Procedure Name Priority Date/Time Associated Diagnosis Comments BASIC METABOLIC PANEL Routine 05/30/2025 11:17 AM CDT CBC WITH DIFFERENTIAL Routine 05/30/2025 11:15 AM CDT from Last 3 Months Results * BASIC METABOLIC PANEL (05/30/2025 11:17 AM CDT) Blood Al Bender MD CHEMISTRY ORDERABLES Final Resu lt * CBC WITH DIFFERENTIAL (05/30/2025 11:15 AM CDT) Blood Al Bender MD HEMATOLOGY ORDERABLES Final Res ult from Last [address] [place] [address] [place] [id number] Care Teams Muffler Installer Relationship Specialty Start Date End Date Anand Rowe MD [address] [place] [phone] PCP - General Family Practice 03/07/24
--- OUTSIDE RECORDS SUMMARY | 2025-07-25 14:35 | XMS_ITS | Clinical Summary ---
Author Organization [facility] Address [address] [facility] [place] [address] Care Team Providers Care Internal Controls Manager Name Role Phone Anand Rowe MD Primary Care Provider [phone] Source Comments [facility],non-owned Affiliates and Associated Physician Practices is amultiple site organization consisting of ambulatory clinics and hospital sitesin [place], [place], [place] and [place]. This disclosure is being madepursuant to the Care Everywhere program and may not contain all information available regarding this patient. Last updated 18.[facility] Allergies No known active allergies Medications * [...] 01/11/1981 ZOSTER VACCINE (1 of 2) 01/11/2010 SCREENING FOR DIABETES 06/13/2019 Respiratory Syncytial Virus (RSV) Vaccine Pt: or over 60 yrs (1 - Risk 60-74 years 1-dose series) 2020 DEPRESSION SCREENING 11/07/2024 COVID-19 VACCINE (1 - 2023-2 5 season) 2025 INFLUENZA VACCINE (#1) 2025 HEPATITIS B VACCINE [...] patient's age to complete this topic Insurance [facility] Care Teams Internal Controls Manager Relationship Specialty Start Date End Date Anand Rowe MD [address] [place] [id number] PCP - General 05/21/19
--- OUTSIDE RECORDS SUMMARY | 2025-07-25 14:35 | XMS_ITS | Encounter Summary ---
Author Organization [facility] Address [address] [place] [address] Care Team Providers Care Senior Tableau Developer Name Role Phone Anand Rowe MD Primary Care Provider [phone] Encounter Details Date Type Department Care Team (Late st Contact Info) Description 04/13/2021 Community Orders [facility] EpicCare Link Killian Gonzalez MD [address] [place] [address] Other chest pain (Primary Dx); Other form of dyspnea Social History Tobacco Use Types Packs/Day Years Used Date Smoking Tobacco: Never Assessed Comments Unknown Sex and Gender Information Value Date Recorded Sex Assigned at Not on file Legal Sex Female 5:38 PM 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 DOBBY 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 Gender Identity Not on file Sexual Orientation Not on file documented as of this encounter Plan of Treatment Not on file documented as of this encounter Visit Diagnoses Diagnosis Other chest pain- Primary Other form of dyspnea documented in this encounter Orders Case Request Count Last Ordered Date First Orde red Date CASE REQUEST ROOM COOLER INSTALLER 1 04/13/2021 documented in this encounter Additional Health Concerns Infection Onset Date Last Indicated Resolved Time COVID: Suspected 09/12/2024 09/12/2024 09/12/2024 3:33 PM WEAVER DOBBY LOOM documented as of this encounter Care Teams Senior Tableau Developer Relationship Specialty Start Date End Date Anand Rowe MD PCP - General Emergency Medicine 05/22/20 documented as of this encounter
--- OUTSIDE RECORDS SUMMARY | 2025-07-25 14:35 | XMS_ITS | Encounter Summary ---
Author Organization [facility] Address [address] [place] [address] Phone Care Team Providers Care Mixologist Name Role Phone Anand Rowe MD Primary Care Provider [phone] Encounter Details Date Type Department Care Team (Latest Contact Info) Description 04/07/2021 Orders Only [facility] Scanning, Provider Social History Tobacco Use Types Packs/Day Years Used Date Smoking Tobacco: Never Assessed Comments Unknown Sex and Gender Information Value Date Recorded Sex Assigned at Not on file Legal Sex Female 5:38 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
[2025-07-25 16:32] LABS: Free T4 Free Thyroxine 1.17 ng/dL (0.78-2.19)
[2025-07-25 16:44] LABS: Thyroid Stimulating Hormone 4.320 uIU/mL (0.465-4.680)
== END 2025-07-25 14:28 | disposition home or self-care (01) ==
LOC: ANHLAB 14:34
PROVIDERS: PCP Emergency Medicine; Visit Provider Emergency Medicine
DX: R94.6 Abnormal results of thyroid function studies (principal)
CPT/HCPCS: 36415; 84439; 84443